=== PATIENT | female | born 1955 | race Caucasian/White ===

== ENCOUNTER 2020-07-18 13:30 | Outpatient (REF) | payer MEDICARE, SELFPAY | END 2020-07-18 13:31 | disposition home or self-care (01) | LOC: HO.LAB 13:30 | PROVIDERS: PCP Internal Medicine; Visit Provider Internal Medicine | DX: Z20.822 Contact with and (suspected) exposure to COVID-19 (principal) | CPT/HCPCS: 36415; C9803; U0003 ==

== ENCOUNTER 2020-07-30 15:29 | Outpatient (REF) | payer MEDICARE, SELFPAY | END 2020-07-30 15:30 | disposition home or self-care (01) | LOC: HO.LAB 15:29 | PROVIDERS: Visit Provider Internal Medicine | DX: Z20.822 Contact with and (suspected) exposure to COVID-19 (principal) | CPT/HCPCS: 36415; C9803; U0003; U0005 ==

== ENCOUNTER 2020-08-18 13:39 | Outpatient (REF) | payer MEDICARE, SELFPAY | END 2020-08-18 13:40 | disposition home or self-care (01) | LOC: HO.LAB 13:39 | PROVIDERS: Visit Provider Internal Medicine | DX: Z20.822 Contact with and (suspected) exposure to COVID-19 (principal) | CPT/HCPCS: 36415; C9803; U0003; U0005 ==

== ENCOUNTER 2020-10-06 13:11 | Outpatient (REF) | payer MEDICARE, SELFPAY | END 2020-10-06 13:12 | disposition home or self-care (01) | LOC: HO.LAB 13:11 | PROVIDERS: Visit Provider Internal Medicine | DX: Z20.822 Contact with and (suspected) exposure to COVID-19 (principal) | CPT/HCPCS: C9803; U0003; U0005 ==

== ENCOUNTER 2020-10-20 15:49 | Outpatient (REF) | payer MEDICARE, SELFPAY | END 2020-10-20 15:50 | disposition home or self-care (01) | LOC: HO.LAB 15:49 | PROVIDERS: Visit Provider Internal Medicine | DX: Z20.822 Contact with and (suspected) exposure to COVID-19 (principal) | CPT/HCPCS: C9803; U0003; U0005 ==

== ENCOUNTER 2020-12-23 21:42 | Emergency (ER) | payer MEDICARE, SELFPAY ==
[2020-12-23 21:45] VITALS: BP 179/100; PULSE 72; RESP 18; TEMP 36.9; O2SAT 98; BMI 37.3
[2020-12-23 22:00] VITALS: BP 156/77; PULSE 72; RESP 16; TEMP 36.7; O2SAT 99
--- NOTE | 2020-12-23 22:42 | ECG_ITS ---
Test Reason : HBP Blood Pressure : / mmHG Vent. Rate : 070 BPM Atrial Rate : 070 BPM P-R Int : 168 ms QRS Dur : 078 ms QT Int : 374 ms P-R-T Axes : 021 030 072 degrees QTc Int : 403 ms Normal sinus rhythm Nonspecific T wave abnormality Abnormal ECG When compared with ECG of 05-DEC-2014 15:25, Nonspecific T wave abnormality now evident in Inferior leads Nonspecific T wave abnormality, worse in Lateral leads Referred By: Mai Ford Electronically Signed By:MARIA L ROUSSEAU
--- NOTE | 2020-12-23 22:43 | ED.GENADULT ---
HPI - General Adult General Chief complaint: Recheck/Abnormal Lab/Rx Stated complaint: high bp Time Seen by Provider: 12/23/20 22:32 Source: patient Mode of arrival: ambulatory Limitations: no limitations History of Present Illness HPI narrative: patient comes emergency room complaining of high blood pressure. Patient states that in the last couple of days, she has been having episodes of headache, blurry vision, and chest pressure. At this time, patient states she does not have any symptoms. Last time patient had symptoms was 19:00 today. patient takes verapamil 120 mg at night Related Data Previous Rx's Medication Instructions Recorded verapamil 40 mg PO DAILY #20 tab 12/24/20 Allergies Allergy/AdvReac Type Severity Reaction Status Date / Time codeine Allergy Itching Verified 12/23/20 21:45 Review of Systems Review of Systems: Constitutional : No Weight loss, No Fever, No Chills, No Night Sweats, No Fatigue, No Malaise ENT/Mouth : No Hearing loss, No Ear Pain, No Nasal Congestion, No Sinus Pain, No Hoarseness, No sore throat, No Rhinorrhea, No Swallowing Difficulty Eyes: No Eye Pain, No Swelling, No Redness, No Foreign Body, No Discharge, blurry vision with high blood pressure Cardiovascular : chest pressure now resolved, No SOB, No Dyspnea on Exertion, No Orthopnea, No Edema, No Palpitations Respiratory : No Cough, No Sputum, No Wheezing, No Smoke Exposure, No Dyspnea Gastrointestinal : No Nausea, No Vomiting, No Diarrhea, No Constipation, No abdominal Pain, No Hematochezia, No Melena Genitourinary : no irregular bleeding, No Dysuria, No Urinary Frequency, No Hematuria, No Urinary Incontinence, No Urgency, No Flank Pain, No Urinary Flow Changes, No Hesitancy Musculoskeletal : No joint pain, No Myalgias, No Joint Swelling Skin : No Skin Lesions, No rash Neuro : No Weakness, No Numbness, No Paresthesias, No Loss of Consciousness, No Dizziness, headache which resolved Psych : No Anxiety/Panic, No Depression, No SI/HI/AH/VH, No Social Issues, Heme/Lymph: No Bruising, No Bleeding,No Lymphadenopathy Endocrine : No Polyuria, No Polydipsia, No Temperature Intolerance PMFSH Past Medical History Medical History Anxiety Depression Diabetes HTN (hypertension) Migraines Social History Social History Advance Directives: No Physical Exam Vital Signs: Vital Signs: Last Vital Signs Temp 98.1 F 12/23/20 22:00 Pulse 76 12/24/20 00:21 Resp 16 12/24/20 00:21 BP 125/71 12/24/20 00:21 Pulse Ox 98 12/24/20 00:21 Body Mass Index 37.3 Appearance: Alert. Oriented X3. No acute distress. Eyes: Pupils equal, round and reactive to light. ENT: Pharynx normal. Neck: Normal inspection. Neck supple. No lymph nodes noted. No crepitus CVS: Normal heart rate and rhythm. Pulses normal. Normal S1 and S2 Respiratory: No respiratory distress. Breath sounds normal. No Wheezing. No rales Abdomen: Soft and nontender. No rigidity. No distention. Skin: Skin warm and dry. Normal skin color. Normal skin turgor. Extremities: No lower extremity edema. No lower extremity edema. No Lacerations. No Rash Neuro: Oriented X 3. No motor deficit. No sensory deficit. Moving all extermities. No slurred speech. Course Course Course Narrative: at this time, patient's blood pressure is 156/77, patient is asymptomatic. Patient did have chest pressure earlier today, we will go ahead and obtain labs and EKG. patient's troponin negative, patient remains asymptomatic. I discussed with the patient to continue taking 120 mg of verapamil as prescribed by her PCP, but in addition, we will add 40 mg of verapamil in the morning, as this medication can be taken b.i.d. or t.i.d. patient agrees with plan Medical Decision Making Lab Data Result diagrams: 12/23/20 23:18 12/23/20 23:18 Labs: Lab Results 12/23/20 12/23/20 12/23/20 Range/Units 23:18 23:18 23:18 WBC 7.6 (4.8-10.8) X10*3/uL RBC 3.98 L (4.20-5.50) X10*6/uL Hgb 12.9 (12.0-16.0) g/dl Hct 39.1 (37-47) % MCV 98.2 H (80-98) fL MCH 32.4 (27.0-33.0) pg MCHC 33.0 (31.0-35.0) g/dl RDW 13.1 (11.0-16.0) % Plt Count 260 (160-400) X10*3/uL MPV 10.6 (9.4-12.3) fL Immature Gran % (Auto) 0.3 (0.0-0.4) % Neut % (Auto) 54.1 (45-73) % Lymph % (Auto) 33.7 (20-40) % [place] % (Auto) 9.9 (2-11) % Eos % (Auto) 1.3 (0-4) % Baso % (Auto) 0.7 (0-2) % Lymph # (Auto) 2.6 (1.2-4.9) X10*3/uL [place] # (Auto) 0.8 (0.1-1.2) X10*3/uL Eos # (Auto) 0.1 (0.0-0.4) X10*3/uL Baso # (Auto) 0.1 (0.0-0.2) X10*3/uL Abs Immat Gran (auto) 0.02 (0.00-0.03) X10*3/uL Absolute Neuts (auto) 4.1 (2.0-8.3) X10*3/uL Absolute Nucleated RBC 0.000 (0.0-0.012) X10*3/uL Nucleated RBC % (auto) 0.0 (0.0-0.2) /100WBC Sodium 142 (135-145) mmol/L Potassium 4.5 (3.3-5.1) mmol/L Chloride 107 (96-108) mmol/L Carbon Dioxide 26 (22-29) mmol/L Anion Gap 14 (12-20) BUN 12 (9-16) mg/dL Creatinine 0.70 (0.5-1.4) mg/dL Estim Creat Clear Calc 83.6 Estimated GFR > 60 Random Glucose 100 (60-115) mg/dL Calcium 9.7 (8.4-10.2) mg/dL Troponin I High Sens < 3.5 (<3.5-17.0) ng/L B-Natriuretic Peptide 16 (<100) pg/mL Urine Color Urine Appearance Urine pH (5.0-8.0) Ur Specific [place] (1.005-1.025) Urine Protein (NEG-TRACE) MG/DL Urine Glucose (UA) (NEG) MG/DL Urine Ketones (NEG) MG/DL Urine Blood (NEG) Urine Nitrite (NEG) Ur Leukocyte Esterase (NEG) 12/23/20 Range/Units 23:20 WBC (4.8-10.8) X10*3/uL RBC (4.20-5.50) X10*6/uL Hgb (12.0-16.0) g/dl Hct (37-47) % MCV (80-98) fL MCH (27.0-33.0) pg MCHC (31.0-35.0) g/dl RDW (11.0-16.0) % Plt Count (160-400) X10*3/uL MPV (9.4-12.3) fL Immature Gran % (Auto) (0.0-0.4) % Neut % (Auto) (45-73) % Lymph % (Auto) (20-40) % [place] % (Auto) (2-11) % Eos % (Auto) (0-4) % Baso % (Auto) (0-2) % Lymph # (Auto) (1.2-4.9) X10*3/uL [place] # (Auto) (0.1-1.2) X10*3/uL Eos # (Auto) (0.0-0.4) X10*3/uL Baso # (Auto) (0.0-0.2) X10*3/uL Abs Immat Gran (auto) (0.00-0.03) X10*3/uL Absolute Neuts (auto) (2.0-8.3) X10*3/uL Absolute Nucleated RBC (0.0-0.012) X10*3/uL Nucleated RBC % (auto) (0.0-0.2) /100WBC Sodium (135-145) mmol/L Potassium (3.3-5.1) mmol/L Chloride (96-108) mmol/L Carbon Dioxide (22-29) mmol/L Anion Gap (12-20) BUN (9-16) mg/dL Creatinine (0.5-1.4) mg/dL Estim Creat Clear Calc Estimated GFR Random Glucose (60-115) mg/dL Calcium (8.4-10.2) mg/dL Troponin I High Sens (<3.5-17.0) ng/L B-Natriuretic Peptide (<100) pg/mL Urine Color COLORLESS Urine Appearance CLEAR Urine pH 6.0 (5.0-8.0) Ur Specific [place] <= 1.005 (1.005-1.025) Urine Protein NEG (NEG-TRACE) MG/DL Urine Glucose (UA) NEG (NEG) MG/DL Urine Ketones NEG (NEG) MG/DL Urine Blood NEG (NEG) Urine Nitrite NEG (NEG) Ur Leukocyte Esterase NEG (NEG) ECG Data Attestation: I personally reviewed and interpreted this ECG as follows: ( sinus rhythm, heart rate 70, no ST segment depression or elevation, no T-wave inversion, QTC 403) Discharge Plan Discharge Clinical Impression: Hypertension Qualifiers: Hypertension type: unspecified Qualified Code(s): I10 - Essential (primary) hypertension Patient Disposition: Home, Self-Care Instructions: Hypertension (ED) Additional Instructions: Please follow-up with your primary care physician tomorrow. If you have any worsening or new symptoms, please return to the emergency room or call 911 Prescriptions: New verapamil 40 mg tablet 40 mg PO DAILY Qty: 20 RF: 0
[2020-12-23 23:25] LABS: MANUAL DIFF FLAG NO
[2020-12-23 23:27] LABS: Basophils Absolute Auto 0.1 X10*3/uL (0.0-0.2); Basophils Percent Auto 0.7 % (0-2); Eosinophils Absolute Auto 0.1 X10*3/uL (0.0-0.4); Eosinophils Percent Auto 1.3 % (0-4); Hematocrit 39.1 % (37-47); Hemoglobin 12.9 g/dl (12.0-16.0); Imm Gran Abs Auto 0.02 X10*3/uL (0.00-0.03); Imm Gran Pct Auto 0.3 % (0.0-0.4); Lymphocytes Absolute Auto 2.6 X10*3/uL (1.2-4.9); Lymphocytes Percent Auto 33.7 % (20-40); Mean Corpuscular Hemoglobin 32.4 pg (27.0-33.0); Mean Corpuscular Volume 98.2 fL (80-98); Mean Platelet Volume 10.6 fL (9.4-12.3); Monocytes Absolute Auto 0.8 X10*3/uL (0.1-1.2); Monocytes Percent Auto 9.9 % (2-11); Neutrophils Absolute Auto 4.1 X10*3/uL (2.0-8.3); Neutrophils Percent Auto 54.1 % (45-73); Platelet Count 260 X10*3/uL (160-400); Red Blood Count 3.98 X10*6/uL (4.20-5.50); Red Cell Distribution Width 13.1 % (11.0-16.0); White Blood Count 7.6 X10*3/uL (4.8-10.8)
[2020-12-23 23:28] LABS: Glucose Urine UA NEG (NEG); Leukocyte Esterase Urine NEG (NEG); Nitrite Urine NEG (NEG); Specific Gravity - Urine <= 1.005 (1.005-1.025); Urine Blood NEG (NEG); Urine Ketones NEG (NEG); Urine Protein NEG (NEG-TRACE)
[2020-12-23 23:29] LABS: Appearance Urine CLEAR; Color Urine COLORLESS; UACC Culture Trigger NO
[2020-12-23 23:47] LABS: Anion Gap 14 (12-20); Blood Urea Nitrogen 12 mg/dL (9-16); Calcium 9.7 mg/dL (8.4-10.2); Carbon Dioxide 26 mmol/L (22-29); Chloride 107 mmol/L (96-108); Creatinine Clr Calc Pharmacy 83.6; Estimated Glomerular Filt Rate > 60; Glucose Random 100 mg/dL (60-115); Potassium 4.5 mmol/L (3.3-5.1); Sodium 142 mmol/L (135-145)
[2020-12-23 23:55] LABS: B Type Natriuretic Peptide 16 pg/mL (<100); Troponin-I High Sensitivity < 3.5 ng/L (<3.5-17.0)
[2020-12-24 00:21] VITALS: BP 125/71; PULSE 76; RESP 16; O2SAT 98
== END 2020-12-24 00:49 | disposition home or self-care (01) ==
PROVIDERS: Emergency Provider Emergency Medicine; PCP Internal Medicine
DX: I10 Essential (primary) hypertension (principal); R07.89 Other chest pain; Z79.899 Other long term (current) drug therapy
CPT/HCPCS: 36415; 80048; 81003; 83880; 84484; 85025; 93005; 99283; 99284

== ENCOUNTER 2021-01-05 14:46 | Emergency (ER) | payer MEDICARE, SELFPAY ==
--- NOTE | ~2021-01-05 | XR_ITS ---
EXAMINATION: XR CHEST CLINICAL INFORMATION: Pain COMPARISON: Previous chest x-ray most recent January 2008 TECHNIQUE: Frontal view of the chest was obtained. FINDINGS: The cardiac and mediastinal contours are normal. The lungs are clear. There is no pleural effusion or pneumothorax. There are degenerative changes of the spine. XR/XR chest 1V IMPRESSION: No evidence for acute disease in the chest.
[2021-01-05 15:01] VITALS: BP 157/90; PULSE 72; RESP 18; TEMP 37.1; O2SAT 98; BMI 37.3
--- NOTE | 2021-01-05 15:07 | ECG_ITS ---
Test Reason : HIGH BLOOD PRESSURE Blood Pressure : / mmHG Vent. Rate : 064 BPM Atrial Rate : 064 BPM P-R Int : 192 ms QRS Dur : 080 ms QT Int : 428 ms P-R-T Axes : -13 018 065 degrees QTc Int : 441 ms Normal sinus rhythm Nonspecific T wave abnormality Abnormal ECG When compared with ECG of 24-DEC-2020 00:33, No significant change was found Referred By: Generic ED Physician Electronically Signed By:EBONY WEST MD
[2021-01-05 16:00] VITALS: BP 153/87; PULSE 69; RESP 15; TEMP 37; O2SAT 99
--- NOTE | 2021-01-05 16:12 | ED_ITS ---
HPI - Weakness General Chief complaint: Recheck/Abnormal Lab/Rx Stated complaint: HIGH BP Time Seen by Provider: 01/05/21 15:54 Source: patient, family and old records reviewed Mode of arrival: ambulatory Limitations: no limitations History of Present Illness HPI Narrative: 65 yo female recent increase in verapamil for uncontrolled HTN at this time she is on 40mg verapamil in the AM and 120mg at night - she feels so much more fatigued and weak since being on the verapamil and also notes that her BP fluctuates to 170s at times MD Complaint: generalized weakness Onset (ago): week(s) (since beginning of December ) Duration: constant Location: generalized Migration: none Severity: moderate Quality: aching Relieving factors: none Exacerbating factors: medication Context: new medication Associated symptoms: chest pain, loss of appetite and myalgias Related Data Previous Rx's Medication Instructions Recorded verapamil 40 mg PO DAILY #20 tab 12/24/20 lisinopril 10 mg PO DAILY #30 tab 01/05/21 Allergies Allergy/AdvReac Type Severity Reaction Status Date / Time codeine Allergy Itching Verified 12/23/20 21:45 Review of Systems Review of Systems: Constitutional : No Weight loss, No Fever, No Chills, pos Fatigue, pos Malaise ENT/Mouth : No sore throat, No Rhinorrhea Eyes: No Eye Pain, No Swelling, No Redness Cardiovascular : pos Chest Pain, No SOB, No Dyspnea on Exertion, No Orthopnea, No Edema, No Palpitations Respiratory : No Cough, No Sputum, No Wheezing Gastrointestinal : No Nausea, No Vomiting, No Diarrhea, No Constipation, No abdominal Pain, No Hematochezia, No Melena Genitourinary : No Dysuria, No Urinary Frequency, No Hematuria, Musculoskeletal : No joint pain, No Myalgias, No Joint Swelling Skin : No Skin Lesions, No rash Neuro : pos Weakness, No Numbness, No Dizziness, No Headache Psych : No Anxiety/Panic, No Depression Heme/Lymph: No Bruising, No Bleeding,No Lymphadenopathy Endocrine : No Polyuria, No Polydipsia All other systems reviewed and are negative [facility] Past Medical History Attestation statement: The following information was validated with the patient. Medical History Anxiety Depression Diabetes HTN (hypertension) Migraines Social History Social History Alcohol intake: never Patient Tobacco Use Status: Never used Tobacco Use of substances other than those prescribed or required for medical reasons: No Advance Directives: No Advance Directives Information Provided: Yes Physical Exam Vital Signs: Vital Signs: Last Vital Signs Temp 98.6 F 01/05/21 16:00 Pulse 69 01/05/21 16:00 Resp 15 01/05/21 16:00 BP 153/87 H 01/05/21 16:00 Pulse Ox 99 01/05/21 16:00 Body Mass Index 37.3 Appearance: Alert. Oriented X3. No acute distress. Eyes: Pupils equal, round and reactive to light. ENT: Pharynx normal. Neck: Normal inspection. Neck supple. CVS: Normal heart rate and rhythm. Pulses normal. Respiratory: No respiratory distress. Breath sounds normal. Abdomen: Soft and non-tender. Skin: Skin warm and dry. Normal skin color. Normal skin turgor. Extremities: No lower extremity edema. No calf ttp Neuro: Oriented X 3. No motor deficit. No sensory deficit. Course Course Course Narrative: stable workup will take the pateint off of the 40mg in the AM, start lisinopril 5 mg daily for 2 days then increase to 10mg daily if her BP still remain up MDM - Weakness MDM Narrative Medical decision making narrative: 65 yo female with hx of DM, HTN on verapamil for many years - comes in with c/o fluctuating BPs, feels much worse and weak after having her verapamil increased 2 weeks ago - she can't get out of bed, she feels general malaise at this time will obtain labs, EKG, troponin given her reports of CP that are vague and seem atypical for ACS, will stop the verapamil 40mg given her symptoms and start her on lisinopril as patient is DM will start at 10mg daily and refer to PCP if labs wnl, has not been on ROSA-i in the past and does not take more than one BP medication Lab Data Result diagrams: 01/05/21 16:10 01/05/21 16:10 Labs: Lab Results 01/05/21 01/05/21 01/05/21 Range/Units 16:10 16:10 16:10 WBC 7.9 (4.8-10.8) X10*3/uL RBC 4.16 L (4.20-5.50) X10*6/uL Hgb 13.3 (12.0-16.0) g/dl Hct 40.5 (37-47) % MCV 97.4 (80-98) fL MCH 32.0 (27.0-33.0) pg MCHC 32.8 (31.0-35.0) g/dl RDW 12.9 (11.0-16.0) % Plt Count 262 (160-400) X10*3/uL MPV 10.7 (9.4-12.3) fL Immature Gran % (Auto) 0.4 (0.0-0.4) % Neut % (Auto) 62.7 (45-73) % Lymph % (Auto) 29.0 (20-40) % [place] % (Auto) 6.5 (2-11) % Eos % (Auto) 1.0 (0-4) % Baso % (Auto) 0.4 (0-2) % Lymph # (Auto) 2.3 (1.2-4.9) X10*3/uL [place] # (Auto) 0.5 (0.1-1.2) X10*3/uL Eos # (Auto) 0.1 (0.0-0.4) X10*3/uL Baso # (Auto) 0.0 (0.0-0.2) X10*3/uL Abs Immat Gran (auto) 0.03 (0.00-0.03) X10*3/uL Absolute Neuts (auto) 5.0 (2.0-8.3) X10*3/uL Absolute Nucleated RBC 0.000 (0.0-0.012) X10*3/uL Nucleated RBC % (auto) 0.0 (0.0-0.2) /100WBC Sodium 140 (135-145) mmol/L Potassium 4.1 (3.3-5.1) mmol/L Chloride 107 (96-108) mmol/L Carbon Dioxide 25 (22-29) mmol/L Anion Gap 12 (12-20) BUN 15 (9-16) mg/dL Creatinine 0.78 (0.5-1.4) mg/dL Estim Creat Clear Calc 75.1 Estimated GFR > 60 Random Glucose 113 (60-115) mg/dL Calcium 9.2 (8.4-10.2) mg/dL Magnesium 2.0 (1.6-2.6) mg/dL Total Bilirubin 0.2 (0.0-1.0) mg/dL Direct Bilirubin < 0.2 (0.0-0.5) mg/dL AST 25 (5-31) U/L ALT 40 H (0-31) U/L Alkaline Phosphatase 62 (39-117) U/L Total Creatine Kinase (26-140) U/L Troponin I High Sens < 3.5 (<3.5-17.0) ng/L Total Protein 6.6 (6.5-8.0) g/dL Albumin 4.0 (3.5-5.0) g/dL Lipase 26 (8-78) U/L 01/05/21 Range/Units 16:10 WBC (4.8-10.8) X10*3/uL RBC (4.20-5.50) X10*6/uL Hgb (12.0-16.0) g/dl Hct (37-47) % MCV (80-98) fL MCH (27.0-33.0) pg MCHC (31.0-35.0) g/dl RDW (11.0-16.0) % Plt Count (160-400) X10*3/uL MPV (9.4-12.3) fL Immature Gran % (Auto) (0.0-0.4) % Neut % (Auto) (45-73) % Lymph % (Auto) (20-40) % [place] % (Auto) (2-11) % Eos % (Auto) (0-4) % Baso % (Auto) (0-2) % Lymph # (Auto) (1.2-4.9) X10*3/uL [place] # (Auto) (0.1-1.2) X10*3/uL Eos # (Auto) (0.0-0.4) X10*3/uL Baso # (Auto) (0.0-0.2) X10*3/uL Abs Immat Gran (auto) (0.00-0.03) X10*3/uL Absolute Neuts (auto) (2.0-8.3) X10*3/uL Absolute Nucleated RBC (0.0-0.012) X10*3/uL Nucleated RBC % (auto) (0.0-0.2) /100WBC Sodium (135-145) mmol/L Potassium (3.3-5.1) mmol/L Chloride (96-108) mmol/L Carbon Dioxide (22-29) mmol/L Anion Gap (12-20) BUN (9-16) mg/dL Creatinine (0.5-1.4) mg/dL Estim Creat Clear Calc Estimated GFR Random Glucose (60-115) mg/dL Calcium (8.4-10.2) mg/dL Magnesium (1.6-2.6) mg/dL Total Bilirubin (0.0-1.0) mg/dL Direct Bilirubin (0.0-0.5) mg/dL AST (5-31) U/L ALT (0-31) U/L Alkaline Phosphatase (39-117) U/L Total Creatine Kinase 80 (26-140) U/L Troponin I High Sens (<3.5-17.0) ng/L Total Protein (6.5-8.0) g/dL Albumin (3.5-5.0) g/dL Lipase (8-78) U/L ECG Data Attestation: I personally reviewed and interpreted this ECG as follows: ECG interpretation date: 01/05/21 ECG interpretation time: 16:13 Interpretation: Rate: 64 Rhythm: NSR [place]: normal Normal P waves. Normal WILLY. Normal QRS complex. ST T wave : normal no ALMA qTC: normal prior studies: no acute ischemia The study has been interpreted contemporaneously by me. . Discharge Plan Discharge Clinical Impression: Weakness HTN (hypertension) Qualifiers: Hypertension type: unspecified Qualified Code(s): I10 - Essential (primary) hypertension Patient Disposition: Home, Self-Care Instructions: Chronic Hypertension (ED) Additional Instructions: return to ED for any worsening symptoms or concerns STOP VERAPAMIL IN THE AM NO MORE 40MG IN THE MORNING START 5MG DAILY IN THE AM X 2 DAYS IF BLOOD PRESSURE REMAINS HIGH INCREASE TO 10MG DAILY Prescriptions: New lisinopril 10 mg tablet 10 mg PO DAILY Qty: 30 RF: 0 No Action verapamil 40 mg tablet 40 mg PO DAILY Qty: 20 RF: 0 Referrals: Hubert Alfredo MD [Primary Care Provider] - 1 week
[2021-01-05 16:13] LABS: MANUAL DIFF FLAG NO
[2021-01-05 16:16] LABS: Basophils Percent Auto 0.4 % (0-2); Eosinophils Absolute Auto 0.1 X10*3/uL (0.0-0.4); Hematocrit 40.5 % (37-47); Hemoglobin 13.3 g/dl (12.0-16.0); Imm Gran Abs Auto 0.03 X10*3/uL (0.00-0.03); Imm Gran Pct Auto 0.4 % (0.0-0.4); Lymphocytes Absolute Auto 2.3 X10*3/uL (1.2-4.9); Mean Corpuscular HGB Conc 32.8 g/dl (31.0-35.0); Mean Corpuscular Volume 97.4 fL (80-98); Mean Platelet Volume 10.7 fL (9.4-12.3); Monocytes Absolute Auto 0.5 X10*3/uL (0.1-1.2); Monocytes Percent Auto 6.5 % (2-11); Neutrophils Percent Auto 62.7 % (45-73); Platelet Count 262 X10*3/uL (160-400); Red Blood Count 4.16 X10*6/uL (4.20-5.50); Red Cell Distribution Width 12.9 % (11.0-16.0); White Blood Count 7.9 X10*3/uL (4.8-10.8)
[2021-01-05 16:39] LABS: Alanine Aminotransferase 40 U/L (0-31); Alkaline Phosphatase 62 U/L (39-117); Anion Gap 12 (12-20); Aspartate Amino Transferase 25 U/L (5-31); Bilirubin Direct < 0.2 mg/dL (0.0-0.5); Bilirubin Total 0.2 mg/dL (0.0-1.0); Blood Urea Nitrogen 15 mg/dL (9-16); Calcium 9.2 mg/dL (8.4-10.2); Carbon Dioxide 25 mmol/L (22-29); Chloride 107 mmol/L (96-108); Creatinine Clr Calc Pharmacy 75.1; Estimated Glomerular Filt Rate > 60; Glucose Random 113 mg/dL (60-115); Lipase 26 U/L (8-78); Potassium 4.1 mmol/L (3.3-5.1); Sodium 140 mmol/L (135-145); Total Protein 6.6 g/dL (6.5-8.0)
[2021-01-05 16:43] LABS: Troponin-I High Sensitivity < 3.5 ng/L (<3.5-17.0)
[2021-01-05 17:32] VITALS: BP 135/71; PULSE 73
== END 2021-01-05 17:23 | disposition home or self-care (01) ==
PROVIDERS: Emergency Provider Emergency Medicine; PCP Internal Medicine
DX: I10 Essential (primary) hypertension (principal); R53.1 Weakness; Z79.899 Other long term (current) drug therapy
CPT/HCPCS: 36415; 71045; 80048; 80076; 82550; 83690; 83735; 84484; 85025; 93005; 99284

== ENCOUNTER 2021-03-16 06:19 | Emergency (ER) | payer MEDICARE, SELFPAY ==
--- NOTE | ~2021-03-16 | CT_ITS ---
EXAMINATION: CT ABDOMEN AND PELVIS WITHOUT CONTRAST CLINICAL INFORMATION: Left-sided flank pain. COMPARISON: None TECHNIQUE: Multidetector volumetric imaging was performed from the superior aspect of the liver through the pubic symphysis. Sagittal and coronal reformatted images were obtained on the technologist's workstation. This CT examination was performed using dose optimization techniques as appropriate, variously including the following: *Automated exposure control *Adjustment of mA and/or kV according to patient size (this includes techniques or standardized protocols for targeted exams where dose is matched to indication/reason for exam; i.e. extremities or head) *Use of iterative reconstruction technique DLP: 798 mGy-cm FINDINGS: LUNG BASES: There is a small hiatal hernia. The lung bases are clear. LIVER, GALLBLADDER, AND BILIARY TREE: The liver is normal in size, shape, and attenuation. No focal hepatic lesion or biliary ductal dilatation is present. The gallbladder has been surgically removed. PANCREAS: Unremarkable. SPLEEN: Unremarkable. ADRENAL GLANDS: Unremarkable. KIDNEYS AND URETERS: The kidneys are normal in size, shape, and attenuation. No hydronephrosis, hydroureter, or calculi seen. No perinephric stranding. BLADDER: Unremarkable. GASTROINTESTINAL TRACT: There is diffuse colonic diverticulosis most prominent descending and the sigmoid: Without mural thickening or pericolic fat stranding. There is scattered stool seen throughout the colon without distention. The small bowel loops are normal caliber. Appendix is normal caliber with. No free air or free fluid seen. ABDOMINAL WALL: A small the colon hernia containing fat is noted. Also visualized is a supraumbilical) midline abdominal hernia containing fat with a 1.2 cm wide neck. LYMPH NODES: Normal. VASCULAR: Unremarkable. PELVIC VISCERA: There is no free air or free fluid. No abnormal pelvic or inguinal lymph nodes seen. OSSEOUS STRUCTURES: There are degenerative disc changes L2-L3, L3-L4 and L4-L5 disc levels. No lytic process. 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 Mild facet joint arthropathy seen at the L5-S1 and right L4-L5 disc level. CT/CT abdomen pelvis wo con IMPRESSION: No acute intra-abdominal process seen. There is colonic diverticulosis without diverticulitis. Small lumbar canal hernia containing fat. Small supraumbilical) midline abdominal wall hernia containing fat
--- NOTE | ~2021-03-16 | XR_ITS ---
EXAMINATION: XR CHEST CLINICAL INFORMATION: Cough. COMPARISON: Chest 01/05/2021. TECHNIQUE: Frontal view of the chest was obtained. FINDINGS: No significant abnormality is noted involving the heart, lungs, mediastinum, bony thorax or soft tissues. XR/XR chest 1V IMPRESSION: Unremarkable chest examination.
[2021-03-16 06:36] VITALS: BP 115/71; RESP 20; TEMP 37.1; O2SAT 98; BMI 37.1
--- NOTE | 2021-03-16 07:24 | ED.ASTHMA ---
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 Mode of arrival: ambulatory Limitations: no limitations History of Present Illness MD complaint: asthma attack and wheezing Onset (ago): day(s) (3) Severity: moderate and similar to prior Context: none known Associated symptoms: dry cough Asthma History: childhood onset Treatments Prior to Arrival: inhaled bronchodilator Related Data Previous Rx's Medication Instructions Recorded verapamil 40 mg tablet 40 mg PO DAILY #20 tab 12/24/20 lisinopril 10 mg tablet 10 mg PO DAILY #30 tab 01/05/21 hydrocodone-homatropine 5 mg-1.5 5 ml PO Q6H PRN #60 ml 03/16/21 mg/5 mL (5 mL) oral syrup Allergies Allergy/AdvReac Type Severity Reaction Status Date / Time codeine Allergy Itching Verified 12/23/20 21:45 Review of Systems Review of Systems: Constitutional : No Fever, No Chills ENT/Mouth : No Hoarseness, No sore throat, No Rhinorrhea Eyes: No Redness, No Discharge, No Vision Changes Cardiovascular : No Chest Pain, positive SOB, positive Dyspnea on Exertion, No Edema Respiratory : positive Cough, No Sputum, positive Wheezing, Gastrointestinal : No Nausea, No Vomiting, No Diarrhea, No abdominal Pain, pos L flank pain Genitourinary : No Dysuria, No Hematuria Musculoskeletal : No joint pain, No Myalgias Skin : No rash Neuro : No Weakness, No Numbness, No Headache Psych : No anxiety, depression Heme/Lymph: No Bruising, No Bleeding Endocrine : No Polyuria, No Polydipsia All other systems reviewed and are negative [facility] Past Medical History Attestation statement: The following information was validated with the patient. Medical History Anxiety Depression Diabetes HTN (hypertension) Migraines Surgical History H/O bariatric surgery Hx of cholecystectomy Social History Social History Alcohol intake: never Patient Tobacco Use Status: Never used Tobacco Advance Directives: No Physical Exam Vital Signs: Vital Signs: Last Vital Signs Temp 98.7 F 03/16/21 06:36 Pulse 60 03/16/21 07:31 Resp 20 03/16/21 06:36 BP 115/71 03/16/21 06:36 Pulse Ox 98 03/16/21 06:36 Body Mass Index 37.1 Appearance: Alert. Oriented X3. No acute distress. Eyes: Pupils equal, round and reactive to light. ENT: Pharynx normal. Neck: Normal inspection. Neck supple. CVS: Normal heart rate and rhythm. Pulses normal. Chest: left lower rib ttp Respiratory: No respiratory distress. Breath sounds mild diffuse end exp wheezes Abdomen: Soft and nontender. incisions are c/d/i Skin: Skin warm and dry. Normal skin color. Normal skin turgor. Extremities: No lower extremity edema. No calf ttp Neuro: Oriented X 3. No motor deficit. No sensory deficit. Course Course Course Narrative: negative workup, CT scan and CXR normal - labs stable UA negative oral dexamethasone ordered MDM - Asthma MDM Narrative Medical decision making narrative: 65 yo female experiencing asthma for 3 days comes in with wheezing and L rib pain post coughing, she has no fevers, no associated GI/ symptoms - will give neb, ant tussive and obtain basic labs, UA, CT scan though I think her pain is related to coughing, no chest pain doubt PE/ACS Lab Data Result diagrams: 03/16/21 07:36 03/16/21 07:36 Labs: Lab Results 03/16/21 03/16/21 03/16/21 Range/Units 07:36 07:36 07:36 WBC 5.9 (4.8-10.8) X10*3/uL RBC 3.91 L (4.20-5.50) X10*6/uL Hgb 12.5 (12.0-16.0) g/dl Hct 38.6 (37-47) % MCV 98.7 H (80-98) fL MCH 32.0 (27.0-33.0) pg MCHC 32.4 (31.0-35.0) g/dl RDW 14.0 (11.0-16.0) % Plt Count 294 (160-400) X10*3/uL MPV 10.4 (9.4-12.3) fL Immature Gran % (Auto) 0.2 (0.0-0.4) % Neut % (Auto) 44.3 L (45-73) % Lymph % (Auto) 43.7 H (20-40) % [place] % (Auto) 8.8 (2-11) % Eos % (Auto) 2.2 (0-4) % Baso % (Auto) 0.8 (0-2) % Lymph # (Auto) 2.6 (1.2-4.9) X10*3/uL [place] # (Auto) 0.5 (0.1-1.2) X10*3/uL Eos # (Auto) 0.1 (0.0-0.4) X10*3/uL Baso # (Auto) 0.1 (0.0-0.2) X10*3/uL Abs Immat Gran (auto) 0.01 (0.00-0.03) X10*3/uL Absolute Neuts (auto) 2.6 (2.0-8.3) X10*3/uL Absolute Nucleated RBC 0.000 (0.0-0.012) X10*3/uL Nucleated RBC % (auto) 0.0 (0.0-0.2) /100WBC Sodium 140 (135-145) mmol/L Potassium 4.6 (3.3-5.1) mmol/L Chloride 107 (96-108) mmol/L Carbon Dioxide 24 (22-29) mmol/L Anion Gap 14 (12-20) BUN 8 L (9-16) mg/dL Creatinine 0.66 (0.5-1.4) mg/dL Estim Creat Clear Calc 88.5 Estimated GFR > 60 Random Glucose 98 (60-115) mg/dL Calcium 9.3 (8.4-10.2) mg/dL Magnesium 2.2 (1.6-2.6) mg/dL Total Bilirubin 0.4 (0.0-1.0) mg/dL Direct Bilirubin < 0.2 (0.0-0.5) mg/dL AST 36 H D (5-31) U/L ALT 55 H (0-31) U/L Alkaline Phosphatase 55 (39-117) U/L Total Protein 6.4 L (6.5-8.0) g/dL Albumin 3.9 (3.5-5.0) g/dL Lipase 34 (8-78) U/L Urine Color Urine Appearance Urine pH (5.0-8.0) Ur Specific [place] (1.005-1.025) Urine Protein (NEG-TRACE) MG/DL Urine Glucose (UA) (NEG) MG/DL Urine Ketones (NEG) MG/DL Urine Blood (NEG) Urine Nitrite (NEG) Ur Leukocyte Esterase (NEG) COVID-19 (DAMARIS) Negative (Negative) COVID-19 Clin Com See Note 03/16/21 Range/Units 09:51 WBC (4.8-10.8) X10*3/uL RBC (4.20-5.50) X10*6/uL Hgb (12.0-16.0) g/dl Hct (37-47) % MCV (80-98) fL MCH (27.0-33.0) pg MCHC (31.0-35.0) g/dl RDW (11.0-16.0) % Plt Count (160-400) X10*3/uL MPV (9.4-12.3) fL Immature Gran % (Auto) (0.0-0.4) % Neut % (Auto) (45-73) % Lymph % (Auto) (20-40) % [place] % (Auto) (2-11) % Eos % (Auto) (0-4) % Baso % (Auto) (0-2) % Lymph # (Auto) (1.2-4.9) X10*3/uL [place] # (Auto) (0.1-1.2) X10*3/uL Eos # (Auto) (0.0-0.4) X10*3/uL Baso # (Auto) (0.0-0.2) X10*3/uL Abs Immat Gran (auto) (0.00-0.03) X10*3/uL Absolute Neuts (auto) (2.0-8.3) X10*3/uL Absolute Nucleated RBC (0.0-0.012) X10*3/uL Nucleated RBC % (auto) (0.0-0.2) /100WBC Sodium (135-145) mmol/L Potassium (3.3-5.1) mmol/L Chloride (96-108) mmol/L Carbon Dioxide (22-29) mmol/L Anion Gap (12-20) BUN (9-16) mg/dL Creatinine (0.5-1.4) mg/dL Estim Creat Clear Calc Estimated GFR Random Glucose (60-115) mg/dL Calcium (8.4-10.2) mg/dL Magnesium (1.6-2.6) mg/dL Total Bilirubin (0.0-1.0) mg/dL Direct Bilirubin (0.0-0.5) mg/dL AST (5-31) U/L ALT (0-31) U/L Alkaline Phosphatase (39-117) U/L Total Protein (6.5-8.0) g/dL Albumin (3.5-5.0) g/dL Lipase (8-78) U/L Urine Color YELLOW Urine Appearance HAZY Urine pH 6.0 (5.0-8.0) Ur Specific [place] 1.025 (1.005-1.025) Urine Protein NEG (NEG-TRACE) MG/DL Urine Glucose (UA) NEG (NEG) MG/DL Urine Ketones NEG (NEG) MG/DL Urine Blood NEG (NEG) Urine Nitrite NEG (NEG) Ur Leukocyte Esterase NEG (NEG) COVID-19 ([facility]) (Negative) COVID-19 Clin Com Discharge Plan Discharge Clinical Impression: Acute chest wall pain Asthma Qualifiers: Asthma severity: moderate Asthma persistence: persistent Asthma complication type: with acute exacerbation Qualified Code(s): J45.41 - Moderate persistent asthma with (acute) exacerbation Patient Disposition: Home, Self-Care Instructions: Asthma (ED), Chest Wall Pain (ED) Additional Instructions: return to ED for any worsening symptoms or concerns negative UA, negative Chest xray, negative CT scan Prescriptions: New hydrocodone-homatropine 5-1.5 mg/5 mL (5 mL) syrup 5 ml PO Q6H PRN (Reason: cough) Qty: 60 RF: 0 No Action verapamil 40 mg tablet 40 mg PO DAILY Qty: 20 RF: 0 lisinopril 10 mg tablet 10 mg PO DAILY Qty: 30 RF: 0 Referrals: Hubert Alfredo MD [Primary Care Provider] - 2 days (if not better) Print Language: [place]
[2021-03-16] MEDS: Albuterol Sulfate (0.083%) 2.5 MG/3 ML VIAL.NEB INHALE (07:30)
[2021-03-16 07:31] VITALS: PULSE 60; O2SAT 100
[2021-03-16 07:41] LABS: MANUAL DIFF FLAG NO
[2021-03-16 07:42] LABS: Basophils Absolute Auto 0.1 X10*3/uL (0.0-0.2); Basophils Percent Auto 0.8 % (0-2); Eosinophils Absolute Auto 0.1 X10*3/uL (0.0-0.4); Eosinophils Percent Auto 2.2 % (0-4); Hematocrit 38.6 % (37-47); Hemoglobin 12.5 g/dl (12.0-16.0); Imm Gran Abs Auto 0.01 X10*3/uL (0.00-0.03); Imm Gran Pct Auto 0.2 % (0.0-0.4); Lymphocytes Absolute Auto 2.6 X10*3/uL (1.2-4.9); Lymphocytes Percent Auto 43.7 % (20-40); Mean Corpuscular HGB Conc 32.4 g/dl (31.0-35.0); Mean Corpuscular Volume 98.7 fL (80-98); Mean Platelet Volume 10.4 fL (9.4-12.3); Monocytes Absolute Auto 0.5 X10*3/uL (0.1-1.2); Monocytes Percent Auto 8.8 % (2-11); Neutrophils Absolute Auto 2.6 X10*3/uL (2.0-8.3); Neutrophils Percent Auto 44.3 % (45-73); Platelet Count 294 X10*3/uL (160-400); Red Blood Count 3.91 X10*6/uL (4.20-5.50); White Blood Count 5.9 X10*3/uL (4.8-10.8)
[2021-03-16 08:15] LABS: Alanine Aminotransferase 55 U/L (0-31); Albumin Level 3.9 g/dL (3.5-5.0); Alkaline Phosphatase 55 U/L (39-117); Anion Gap 14 (12-20); Aspartate Amino Transferase 36 U/L (5-31); Bilirubin Direct < 0.2 mg/dL (0.0-0.5); Bilirubin Total 0.4 mg/dL (0.0-1.0); Blood Urea Nitrogen 8 mg/dL (9-16); Calcium 9.3 mg/dL (8.4-10.2); Carbon Dioxide 24 mmol/L (22-29); Chloride 107 mmol/L (96-108); Creatinine Clr Calc Pharmacy 88.5; Estimated Glomerular Filt Rate > 60; Glucose Random 98 mg/dL (60-115); Lipase 34 U/L (8-78); Magnesium 2.2 mg/dL (1.6-2.6); Potassium 4.6 mmol/L (3.3-5.1); Sodium 140 mmol/L (135-145); Total Protein 6.4 g/dL (6.5-8.0)
[2021-03-16 08:52] LABS: COVID-19 Test Negative (Negative)
[2021-03-16] MEDS: HYDROcodone/Homat 5/1.5/5 ML 5 ML SYRUP PO (09:11)
[2021-03-16 10:00] VITALS: BP 138/75; PULSE 75; RESP 20; TEMP 36.9; O2SAT 97
[2021-03-16 10:02] LABS: Appearance Urine HAZY; Color Urine YELLOW; Glucose Urine UA NEG (NEG); Leukocyte Esterase Urine NEG (NEG); Nitrite Urine NEG (NEG); Specific Gravity - Urine 1.025 (1.005-1.025); Urine Blood NEG (NEG); Urine Ketones NEG (NEG); Urine Protein NEG (NEG-TRACE)
== END 2021-03-16 10:42 | disposition home or self-care (01) ==
PROVIDERS: Emergency Provider Emergency Medicine; PCP Internal Medicine
DX: J45.41 Moderate persistent asthma with (acute) exacerbation (principal); R07.81 Pleurodynia; R10.9 Unspecified abdominal pain; R07.89 Other chest pain; Z20.822 Contact with and (suspected) exposure to COVID-19; Z79.899 Other long term (current) drug therapy
CPT/HCPCS: 36415; 71045; 74176; 80048; 80076; 81003; 83690; 83735; 85025; 87635; 94640; 96374; 99284

== ENCOUNTER 2021-04-09 11:00 | Emergency (ER) | payer MEDICARE, SELFPAY ==
--- NOTE | ~2021-04-09 | XR_ITS ---
EXAMINATION: XR CHEST CLINICAL INFORMATION: Cough. COMPARISON: None TECHNIQUE: 2 views of the chest were obtained. FINDINGS: The lungs are well-expanded and clear of acute process. Heart size and pulmonary vascularity is normal. There is mild degenerative changes bilateral AC joints. There is mild spondylosis dorsal spine.. XR/XR chest 2V IMPRESSION: No acute cardiopulmonary process seen.
[2021-04-09 11:32] VITALS: BP 105/69; PULSE 76; RESP 20; TEMP 37.1; O2SAT 97; BMI 34.7
--- NOTE | 2021-04-09 14:26 | ED.GENADULT ---
HPI - General Adult General Chief complaint: General Medical <HELENA Ohara - Last Filed: 04/09/21 16:40> Stated complaint: Hernia/SOB <HELENA Ohara - Last Filed: 04/09/21 16:40> Time Seen by Provider: 04/09/21 14:21 <HELENA Ohara Last Filed: 04/09/21 16:40> Source: patient <HELENA Ohara Last Filed: 04/09/21 16:40> Mode of arrival: ambulatory <HELENA Ohara Last Filed: 04/09/21 16:40> Limitations: no limitations <HELENA Ohara Last Filed: 04/09/21 16:40> History of Present Illness HPI narrative: 65-year-old female past medical history significant for hypertension presents to the emergency department with complaints of a dry cough X3 weeks and abdominal pain X2 days. She states that the cough is dry in nature, it has not worsened over the past 3 weeks, however it has stayed consistent. She states she is not coughing anything up. She also mentions she is having abdominal pain surrounding her belly button, she states she has a hernia that usually does not hurt, however over the past 2 days she has been having severe pain to the hernia she rates it a 7/10. She reports she had bariatric surgery in early February, with no complications. She has also gotten a cholecystectomy years ago. Denies shortness of breath, chest pain, fevers, chills, nausea, vomiting, weakness. <HELENA Ohara - Last Filed: 04/09/21 16:40> MD complaint: cough and abd pain <HELENA Ohara Last Filed: 04/09/21 16:40> Onset (ago): day(s) (2) <HELENA Ohara Last Filed: 04/09/21 16:40> Location: abdomen <HELENA Ohara Last Filed: 04/09/21 16:40> Radiation: non-radiation <HELENA Ohara Last Filed: 04/09/21 16:40> Severity: moderate <HELENA Ohara Last Filed: 04/09/21 16:40> Severity scale (1-10): 7 <HELENA Ohara Last Filed: 04/09/21 16:40> Quality: stabbing and aching <HELENA Ohara Last Filed: 04/09/21 16:40> Pain Consistency: constant <HELENA Ohara Last Filed: 04/09/21 16:40> Relieving factors: none <HELENA Ohara Last Filed: 04/09/21 16:40> Exacerbating factors: movement and other (palpation and coughing) <HELENA Ohara Last Filed: 04/09/21 16:40> Treatments prior to arrival: none <HELENA Ohara Last Filed: 04/09/21 16:40> Related Data Home medications: Previous Rx's Medication Instructions Recorded verapamil 40 mg tablet 40 mg PO DAILY #20 tab 12/24/20 lisinopril 10 mg tablet 10 mg PO DAILY #30 tab 01/05/21 hydrocodone-homatropine 5 mg-1.5 5 ml PO Q6H PRN #60 ml 03/16/21 mg/5 mL (5 mL) oral syrup benzonatate 100 mg capsule 100 mg PO BID PRN #14 cap 04/09/21 (Tessalon Perles) hydromorphone 2 mg tablet 2 mg PO Q6H PRN #5 tab 04/09/21 (Dilaudid) <HELENA Ohara Last Filed: 04/09/21 16:40> Allergies/adverse reactions: Allergies Allergy/AdvReac Type Severity Reaction Status Date / Time codeine Allergy Itching Verified 12/23/20 21:45 <HELNEA Ohara Last Filed: 04/09/21 16:40> Review of Systems Review of Systems: Constitutional: No Fever, No Chills ENT/Mouth: No sore throat, No Rhinorrhea, No Swallowing Difficulty Eyes: No Eye Pain, No Swelling, No Redness Cardiovascular: No Chest Pain, No SOB, No Orthopnea, No Edema Respiratory: + Cough, No Sputum, No Wheezing, No dyspnea Gastrointestinal: No Nausea, No Vomiting, No Diarrhea, + abdominal Pain, No Hematochezia, No Melena Genitourinary: No Dysuria, No Urinary Frequency, No Hematuria Musculoskeletal: No joint pain, No Myalgias Skin: No Skin Lesions, No rash Neuro: No Weakness, No Numbness, No Dizziness, No Headache <HELENA Ohara - Last Filed: 04/09/21 16:40> [facility] Past Medical History Source: old records reviewed and nursing notes reviewed <HELENA Ohara - Last Filed: 04/09/21 16:40> Medical History: Medical History Anxiety Depression Diabetes HTN (hypertension) Migraines <HELENA Ohara - Last Filed: 04/09/21 16:40> Surgical History: Surgical History H/O bariatric surgery Hx of cholecystectomy <HELENA Ohara - Last Filed: 04/09/21 16:40> Social History Social History: Social History Alcohol intake: never Patient Tobacco Use Status: Never used Tobacco Advance Directives: No <HELENA Ohara - Last Filed: 04/09/21 16:40> Physical Exam Vital Signs: Vital Signs: Last Vital Signs Temp 98.8 F 04/09/21 11:32 Pulse 69 04/09/21 15:37 Resp 18 04/09/21 15:37 BP 133/73 04/09/21 15:37 Pulse Ox 99 04/09/21 15:37 Body Mass Index 34.7 <HELENA Ohara - Last Filed: 04/09/21 16:40> Vital Signs: Last Vital Signs Temp 98.8 F 04/09/21 11:32 Pulse 69 04/09/21 15:37 Resp 18 04/09/21 15:37 BP 133/73 04/09/21 15:37 Pulse Ox 99 04/09/21 15:37 Body Mass Index 34.7 <Walter Miranda MD - Last Filed: 04/09/21 15:26> Appearance: Alert. Oriented X3. No acute distress. Eyes: Pupils equal, round and reactive to light. ENT: Pharynx normal. Neck: Normal inspection. Neck supple. CVS: Normal heart rate and rhythm. Pulses normal. Respiratory: No respiratory distress. Breath sounds normal. Abdomen: Soft and nontender. +BS x4 + small non reducible umbilical hernia noted, tender, no erythema or edema Skin: Skin warm and dry. Normal skin color. Normal skin turgor. No rashes. Extremities: No lower extremity edema. Neuro: Oriented X 3. No motor deficit. No sensory deficit. <HELENA Ohara - Last Filed: 04/09/21 16:40> Course Course Course Narrative: 65-year-old female past medical history significant for hypertension presents to the emergency department with abdominal pain x2 days, and a dry cough x3 weeks. She states she had a bariatric surgery performed early at [facility]. The abdominal pain is likely stemming from a hernia she has in the umbilical region, which is currently non reducible. Patient states that this hernia is usually not painful but over the past 2 days as be come very painful. She denies any other symptoms at this time Upon exam abdomen is soft and only tender around the umbilicus, nondistended. No adventitious lung sounds noted. No weakness noted <EHLENA Ohara - Last Filed: 04/09/21 16:40> Reevaluation(s) Reevaluation #1: I reduced small umbilical/surgical hernia will refer patient back to bariatric surgeon as she is 7 weeks post op from bariatric surgery. <Walter Miranda MD - Last Filed: 04/09/21 15:26> Time: 15:26 <Walter Miranda MD - Last Filed: 04/09/21 15:26> Reevaluation #2: Reached out to [facility] bariatric surgeon Dr. Burch spoke to him personally, who states that this needs to be fixed with in 24 hours. He states I can reach out to our surgeons here, however he will be covering [facility] surgery tomorrow morning, so she can come in through the emergency department tomorrow morning be evaluated, and he will look out for the patient's name, and take her to the OR tomorrow. He states that it is up to the patient. Will inform the patient about this. <HELENA Ohara - Last Filed: 04/09/21 16:40> Time: 15:30 <HELENA Ohara - Last Filed: 04/09/21 16:40> Reevaluation #3: Spoke to patient and daughter, which state that they will proceed with surgery at [facility]. I have informed them that they need to check in as a regular emergency department patient tomorrow, and Dr. Burch will be covering the surgical service. Will send them home with detailed discharge instructions <HELENA Ohara - Last Filed: 04/09/21 16:40> Medical Decision Making Lab Data Result diagrams: : 04/09/21 15:47 04/09/21 15:47 <HELENA Ohara - Last Filed: 04/09/21 16:40> Labs: Lab Results 04/09/21 04/09/21 04/09/21 Range/Units 15:47 15:47 15:47 WBC 6.5 (4.8-10.8) X10*3/uL RBC 3.96 L (4.20-5.50) X10*6/uL Hgb 12.6 (12.0-16.0) g/dl Hct 39.3 (37-47) % MCV 99.2 H (80-98) fL MCH 31.8 (27.0-33.0) pg MCHC 32.1 (31.0-35.0) g/dl RDW 13.7 (11.0-16.0) % Plt Count 251 (160-400) X10*3/uL MPV 10.3 (9.4-12.3) fL Immature Gran % (Auto) 0.2 (0.0-0.4) % Neut % (Auto) 55.4 (45-73) % Lymph % (Auto) 34.3 (20-40) % Ritchie % (Auto) 8.5 (2-11) % Eos % (Auto) 0.8 (0-4) % Baso % (Auto) 0.8 (0-2) % Lymph # (Auto) 2.2 (1.2-4.9) X10*3/uL Ritchie # (Auto) 0.6 (0.1-1.2) X10*3/uL Eos # (Auto) 0.1 (0.0-0.4) X10*3/uL Baso # (Auto) 0.1 (0.0-0.2) X10*3/uL Abs Immat Gran (auto) 0.01 (0.00-0.03) X10*3/uL Absolute Neuts (auto) 3.6 (2.0-8.3) X10*3/uL Absolute Nucleated RBC 0.000 (0.0-0.012) X10*3/uL Nucleated RBC % (auto) 0.0 (0.0-0.2) /100WBC Sodium 141 (135-145) mmol/L Potassium 4.7 (3.3-5.1) mmol/L Chloride 105 (96-108) mmol/L Carbon Dioxide 29 (22-29) mmol/L Anion Gap 12 (12-20) BUN 8 L (9-16) mg/dL Creatinine 0.66 (0.5-1.4) mg/dL Estim Creat Clear Calc 85.3 Estimated GFR > 60 Random Glucose 104 (60-115) mg/dL Calcium 9.4 (8.4-10.2) mg/dL COVID-19 (DAMARIS) Negative (Negative) COVID-19 Clin Com See Note <HELENA Ohara - Last Filed: 04/09/21 16:40> Lab Results 04/09/21 04/09/21 04/09/21 Range/Units 15:47 15:47 15:47 WBC 6.5 (4.8-10.8) X10*3/uL RBC 3.96 L (4.20-5.50) X10*6/uL Hgb 12.6 (12.0-16.0) g/dl Hct 39.3 (37-47) % MCV 99.2 H (80-98) fL MCH 31.8 (27.0-33.0) pg MCHC 32.1 (31.0-35.0) g/dl RDW 13.7 (11.0-16.0) % Plt Count 251 (160-400) X10*3/uL MPV 10.3 (9.4-12.3) fL Immature Gran % (Auto) 0.2 (0.0-0.4) % Neut % (Auto) 55.4 (45-73) % Lymph % (Auto) 34.3 (20-40) % Ritchie % (Auto) 8.5 (2-11) % Eos % (Auto) 0.8 (0-4) % Baso % (Auto) 0.8 (0-2) % Lymph # (Auto) 2.2 (1.2-4.9) X10*3/uL Ritchie # (Auto) 0.6 (0.1-1.2) X10*3/uL Eos # (Auto) 0.1 (0.0-0.4) X10*3/uL Baso # (Auto) 0.1 (0.0-0.2) X10*3/uL Abs Immat Gran (auto) 0.01 (0.00-0.03) X10*3/uL Absolute Neuts (auto) 3.6 (2.0-8.3) X10*3/uL Absolute Nucleated RBC 0.000 (0.0-0.012) X10*3/uL Nucleated RBC % (auto) 0.0 (0.0-0.2) /100WBC Sodium 141 (135-145) mmol/L Potassium 4.7 (3.3-5.1) mmol/L Chloride 105 (96-108) mmol/L Carbon Dioxide 29 (22-29) mmol/L Anion Gap 12 (12-20) BUN 8 L (9-16) mg/dL Creatinine 0.66 (0.5-1.4) mg/dL Estim Creat Clear Calc 85.3 Estimated GFR > 60 Random Glucose 104 (60-115) mg/dL Calcium 9.4 (8.4-10.2) mg/dL COVID-19 (DAMARIS) Negative (Negative) COVID-19 Clin Com See Note <Walter Miranda MD - Last Filed: 04/09/21 15:26> Discharge Plan Discharge Clinical Impression: Cough Hernia, umbilical Qualifiers: Obstruction and gangrene presence: without obstruction or gangrene Qualified Code(s): K42.9 - Umbilical hernia without obstruction or gangrene <HELENA Ohara - Last Filed: 04/09/21 16:40> Patient Disposition: Home, Self-Care <HELENA Ohara - Last Filed: 04/09/21 16:40> Instructions: Umbilical Hernia (ED), Acute Cough (ED), Umbilical Hernia Repair (DC) <HELENA Ohara - Last Filed: 04/09/21 16:40> Additional Instructions: Today one of our staff members was able to speak with . He recommends that tomorrow you go to [facility] emergency department, he will be covering the surgical service, and he will likely be taking you to the OR. You will need to check in as an emergency department patient. It is important that tomorrow morning you go to [facility]. He is aware of your situation. We explained to him that your Hernia is really bothering you and causing 8/10 pain, we were able to reduce the hernia but it continued to come out. Your labs and chest x-ray today were normal Take medications as prescribed- kajal sanchez are for cough Return to the emergency department with new or worsening symptoms. <HELENA Ohara - Last Filed: 04/09/21 16:40> Prescriptions: New benzonatate [Tessalon Perles] 100 mg capsule 100 mg PO BID PRN (Reason: cough) Qty: 14 RF: 0 hydromorphone [Dilaudid] 2 mg tablet 2 mg PO Q6H PRN (Reason: pain) Qty: 5 RF: 0 No Action verapamil 40 mg tablet 40 mg PO DAILY Qty: 20 RF: 0 lisinopril 10 mg tablet 10 mg PO DAILY Qty: 30 RF: 0 hydrocodone-homatropine 5-1.5 mg/5 mL (5 mL) syrup 5 ml PO Q6H PRN (Reason: cough) Qty: 60 RF: 0 <HELENA Ohara - Last Filed: 04/09/21 16:40> Referrals: Mayda Burch MD [Physician] - 1 day (To [facility] is emergency department tomorrow morning, has been told about your case.) <HELENA Ohara - Last Filed: 04/09/21 16:40> Print Language: Turkish <HELENA Ohara - Last Filed: 04/09/21 16:40>
[2021-04-09 15:37] VITALS: BP 133/73; PULSE 69; RESP 18; O2SAT 99
[2021-04-09 16:04] LABS: MANUAL DIFF FLAG NO
[2021-04-09 16:06] LABS: Basophils Absolute Auto 0.1 X10*3/uL (0.0-0.2); Basophils Percent Auto 0.8 % (0-2); Eosinophils Absolute Auto 0.1 X10*3/uL (0.0-0.4); Eosinophils Percent Auto 0.8 % (0-4); Hematocrit 39.3 % (37-47); Hemoglobin 12.6 g/dl (12.0-16.0); Imm Gran Abs Auto 0.01 X10*3/uL (0.00-0.03); Imm Gran Pct Auto 0.2 % (0.0-0.4); Lymphocytes Absolute Auto 2.2 X10*3/uL (1.2-4.9); Lymphocytes Percent Auto 34.3 % (20-40); Mean Corpuscular HGB Conc 32.1 g/dl (31.0-35.0); Mean Corpuscular Hemoglobin 31.8 pg (27.0-33.0); Mean Corpuscular Volume 99.2 fL (80-98); Mean Platelet Volume 10.3 fL (9.4-12.3); Monocytes Absolute Auto 0.6 X10*3/uL (0.1-1.2); Monocytes Percent Auto 8.5 % (2-11); Neutrophils Absolute Auto 3.6 X10*3/uL (2.0-8.3); Neutrophils Percent Auto 55.4 % (45-73); Platelet Count 251 X10*3/uL (160-400); Red Blood Count 3.96 X10*6/uL (4.20-5.50); Red Cell Distribution Width 13.7 % (11.0-16.0); White Blood Count 6.5 X10*3/uL (4.8-10.8)
[2021-04-09 16:17] LABS: Anion Gap 12 (12-20); Blood Urea Nitrogen 8 mg/dL (9-16); Calcium 9.4 mg/dL (8.4-10.2); Carbon Dioxide 29 mmol/L (22-29); Chloride 105 mmol/L (96-108); Creatinine Clr Calc Pharmacy 85.3; Estimated Glomerular Filt Rate > 60; Glucose Random 104 mg/dL (60-115); Potassium 4.7 mmol/L (3.3-5.1); Sodium 141 mmol/L (135-145)
[2021-04-09 16:21] LABS: COVID-19 Test Negative (Negative)
[2021-04-09] MEDS: HYDROmorphone HCl 2 MG TABLET PO (16:24)
== END 2021-04-09 16:44 | disposition home or self-care (01) ==
PROVIDERS: Physician Assistant; Emergency Provider Emergency Medicine Emergency Medical Services; PCP Internal Medicine
DX: R05.9 Cough, unspecified (principal); I10 Essential (primary) hypertension; R06.02 Shortness of breath; Z20.822 Contact with and (suspected) exposure to COVID-19; Z79.899 Other long term (current) drug therapy
CPT/HCPCS: 36415; 71046; 80048; 85025; 87635; 99283; 99284

== ENCOUNTER 2021-05-11 13:02 | Outpatient (REF) | payer MEDICARE, SELFPAY | END 2021-05-11 13:03 | disposition home or self-care (01) | LOC: HO.LAB 13:02 | PROVIDERS: PCP Internal Medicine; Visit Provider Internal Medicine | DX: Z20.822 Contact with and (suspected) exposure to COVID-19 (principal) | CPT/HCPCS: C9803; U0003; U0005 ==

== ENCOUNTER 2021-05-14 10:34 | Emergency (ER) | payer MEDICARE, SELFPAY ==
--- NOTE | ~2021-05-14 | XR_ITS ---
EXAMINATION: XR CHEST CLINICAL INFORMATION: Cough. COMPARISON: None TECHNIQUE: Frontal view of the chest was obtained. FINDINGS: The lungs are well-expanded and clear of acute pneumonic process. The heart size and pulmonary vascularity is normal. There is mild spondylosis of dorsal spine. No lytic process. XR/XR chest 1V IMPRESSION: Unremarkable chest examination.
[2021-05-14 10:40] VITALS: BP 156/87; PULSE 88; RESP 20; TEMP 37.1; O2SAT 99; BMI 22.4
--- NOTE | 2021-05-14 10:49 | ED_ITS ---
HPI - URI/Sore Throat General Chief Complaint: General Medical Stated Complaint: flu like symptoms Time Seen by Provider: 05/14/21 10:43 Source: patient Mode of arrival: ambulatory Limitations: no limitations History of Present Illness MD elicited complaint: cough and other (body aches) Pertinent past history: asthma Onset (ago): day(s) (7) Consistency: constant Severity: moderate Description of mucous: clear Able to tolerate fluids by mouth: Yes Relieving factors: other (has been doing her neb treatments) Context: sick contacts (negative COVID tests but daughter and grandson both had colds) Associated symptoms: myalgias, headache, rhinorrhea and cough Treatments prior to arrival: other (tylenol and breathing treatments) Related Data Previous Rx's Medication Instructions Recorded verapamil 40 mg tablet 40 mg PO DAILY #20 tab 12/24/20 lisinopril 10 mg tablet 10 mg PO DAILY #30 tab 01/05/21 hydrocodone-homatropine 5 mg-1.5 5 ml PO Q6H PRN #60 ml 03/16/21 mg/5 mL (5 mL) oral syrup benzonatate 100 mg capsule 100 mg PO BID PRN #14 cap 04/09/21 (Tessalon Perles) hydromorphone 2 mg tablet 2 mg PO Q6H PRN #5 tab 04/09/21 (Dilaudid) azithromycin 250 mg tablet See Rx Instructions .ROUTE 05/14/21 .COMPLEX #6 tab prednisone 20 mg tablet 40 mg PO DAILY 5 Days #10 tab 05/14/21 Allergies Allergy/AdvReac Type Severity Reaction Status Date / Time codeine Allergy Itching Verified 12/23/20 21:45 Review of Systems Review of Systems: Constitutional : No Weight loss, No Fever, No Chills, No Fatigue, pos Malaise ENT/Mouth : No sore throat, pos Rhinorrhea Eyes: No Eye Pain, No Swelling, No Redness Cardiovascular : No Chest Pain, No SOB, No Dyspnea on Exertion, No Orthopnea, No Edema, No Palpitations Respiratory : pos Cough, pos Sputum, No Wheezing Gastrointestinal : No Nausea, No Vomiting, No Diarrhea, No Constipation, No abdominal Pain, No Hematochezia, No Melena Genitourinary : No Dysuria, No Urinary Frequency, No Hematuria, Musculoskeletal : No joint pain, pos Myalgias, No Joint Swelling Skin : No Skin Lesions, No rash Neuro : No Weakness, No Numbness, No Dizziness, No Headache Psych : No Anxiety/Panic, No Depression Heme/Lymph: No Bruising, No Bleeding,No Lymphadenopathy Endocrine : No Polyuria, No Polydipsia All other systems reviewed and are negative [facility] Past Medical History Attestation statement: The following information was validated with the patient. Medical History Anxiety Asthma Depression Diabetes HTN (hypertension) Migraines Surgical History H/O bariatric surgery Hx of cholecystectomy Social History Social History Alcohol intake: never Patient Tobacco Use Status: Never used Tobacco Advance Directives: No Physical Exam Vital Signs: Vital Signs: Last Vital Signs Temp 98.7 F 05/14/21 10:40 Pulse 88 05/14/21 10:40 Resp 20 05/14/21 10:40 BP 156/87 H 05/14/21 10:40 Pulse Ox 99 05/14/21 10:40 Body Mass Index 22.4 Appearance: Alert. Oriented X3. No acute distress. Eyes: Pupils equal, round and reactive to light. ENT: Pharynx normal. Neck: Normal inspection. Neck supple. CVS: Normal heart rate and rhythm. Pulses normal. Respiratory: No respiratory distress. Breath sounds normal. Abdomen: Soft and nontender. Skin: Skin warm and dry. Normal skin color. Normal skin turgor. Extremities: No lower extremity edema. No calf ttp Neuro: Oriented X 3. No motor deficit. No sensory deficit. Course Course Course Narrative: O2 levels normal - no hypoxia no resp distress, stable for DC home patient is vaccinated MDM - URI/Sore Throat MDM Narrative Medical decision making narrative: 65 yo female with hx of HTN, DM, asthma was exposed to a cold by family members everyone has tested negative for COVID, she has been using her neb machine but notes her body aches and cough won't go away. She overall states it is not too bad. She does not have chest pain but her whole body hurts. She will not take steroids as it greatly affects her blood sugars at this time she is not hypoxic not toxic, clear lungs - no wheezing will obtain COVID swab and CXR - treat for bronchitis Lab Data Labs: Lab Results 05/14/21 Range/Units 11:00 COVID-19 (DAMARIS) Positive A (Negative) COVID-19 Clin Com See Note Discharge Plan Discharge Clinical Impression: Bronchitis, COVID-19 Patient Disposition: Home, Self-Care Instructions: Acute Bronchitis (ED), COVID-19 (Coronavirus Disease 2019) (ED) Additional Instructions: return to ED for any worsening symptoms or concerns if you are so short of breath you cannot walk to your bathroom you need to come back wear a mask quarantine and protect others Prescriptions: New azithromycin 250 mg tablet See Rx Instructions .ROUTE .COMPLEX Qty: 6 RF: 0 prednisone 20 mg tablet 40 mg PO DAILY 5 Days Qty: 10 RF: 0 No Action verapamil 40 mg tablet 40 mg PO DAILY Qty: 20 RF: 0 lisinopril 10 mg tablet 10 mg PO DAILY Qty: 30 RF: 0 hydrocodone-homatropine 5-1.5 mg/5 mL (5 mL) syrup 5 ml PO Q6H PRN (Reason: cough) Qty: 60 RF: 0 benzonatate [Tessalon Perles] 100 mg capsule 100 mg PO BID PRN (Reason: cough) Qty: 14 RF: 0 hydromorphone [Dilaudid] 2 mg tablet 2 mg PO Q6H PRN (Reason: pain) Qty: 5 RF: 0 Referrals: Hubert Alfredo MD [Primary Care Provider] - 5 days (as needed if not better) Print Language: Taiwanese
[2021-05-14 11:21] LABS: COVID-19 Test Positive (Negative)
[2021-05-14 12:04] VITALS: RESP 19; O2SAT 96
== END 2021-05-14 12:06 | disposition home or self-care (01) ==
PROVIDERS: Emergency Provider Emergency Medicine; PCP Internal Medicine
DX: U07.1 COVID-19 (principal); J20.8 Acute bronchitis due to other specified organisms; Z79.899 Other long term (current) drug therapy
CPT/HCPCS: 36415; 71045; 87635; 99283

== ENCOUNTER 2022-06-02 11:00 | Emergency (ER) | payer MEDICARE, SELFPAY ==
[2022-06-02 12:13] VITALS: BP 122/71; PULSE 71; RESP 17; TEMP 35.9; O2SAT 98; BMI 33.3
--- NOTE | 2022-06-02 12:15 | ED.GENADULT ---
HPI - General Adult General Chief complaint: Upper Respiratory Symptoms <Jazzy Mendoza NP - Last Filed: 06/02/22 12:20> Stated complaint: flu like symptoms, fever <Jazzy Mendoza NP - Last Filed: 06/02/22 12:20> Time Seen by Provider: 06/02/22 14:21 <Jazzy Mendoza NP - Last Filed: 06/02/22 12:20> Source: patient <HELENA Gan - Last Filed: 06/02/22 18:39> Mode of arrival: ambulatory <HELENA Gan - Last Filed: 06/02/22 18:39> Limitations: no limitations <HELENA Gan - Last Filed: 06/02/22 18:39> History of Present Illness HPI narrative: Patient is a 66 year old assigned female at with no reported medical history presenting to the emergency department today with a cough. Patient states that over the last 5 days, she has had a cough. Patient denies any dizziness, lightheadedness, abdominal pain, nausea, vomiting, fever, chills, blurry vision, double vision, loss of vision, chest pain, difficulty breathing, shortness of breath, back pain, night sweats, pain with urination, increased urinary frequency, increased urinary urgency, blood in her urine or stool, syncope or a near syncopal episode, recent trauma or falls, bowel incontinence, bladder incontinence, bowel retention, bladder retention, or any other complaints at this time. <HELENA Gan - Last Filed: 06/02/22 18:39> Onset (ago): day(s) (5) <HELENA Gan - Last Filed: 06/02/22 18:39> Severity: mild <HELENA Gan - Last Filed: 06/02/22 18:39> Severity scale (1-10): 2 <HELENA Gan - Last Filed: 06/02/22 18:39> Relieving factors: none <HELENA Gan - Last Filed: 06/02/22 18:39> Exacerbating factors: none <HELENA aGn Last Filed: 06/02/22 18:39> Associated symptoms: cough <HELENA Gan - Last Filed: 12/14/22 18:39> Treatments prior to arrival: none <HELENA Gan - Last Filed: 06/02/22 18:39> Related Data Home medications: Previous Rx's Medication Instructions Recorded verapamil 40 mg tablet 40 mg PO DAILY #20 tabs 12/24/20 lisinopril 10 mg tablet 10 mg PO DAILY #30 tabs 01/05/21 hydrocodone-homatropine 5 mg-1.5 5 ml PO Q6H PRN cough #60 mL 03/16/21 mg/5 mL (5 mL) oral syrup benzonatate 100 mg capsule 100 mg PO BID PRN cough #14 caps 04/09/21 (Tessalon Perles) hydromorphone 2 mg tablet 2 mg PO Q6H PRN pain #5 tabs 04/09/21 (Dilaudid) azithromycin 250 mg tablet See Rx Instructions PO .COMPLEX #6 05/14/21 tabs prednisone 20 mg tablet 40 mg PO DAILY 5 days #10 tabs 05/14/21 <Jazzy Mendoza NP - Last Filed: 06/02/22 12:20> Allergies/adverse reactions: Allergies Allergy/AdvReac Type Severity Reaction Status Date / Time codeine Allergy Itching Verified 12/23/20 21:45 <Jazzy Mendoza NP - Last Filed: 06/02/22 12:20> Review of Systems Constitutional: Constitutional: Reports no additional constitutional complaints, Denies chills, Denies fever(s) and Denies night sweats <HELENA Gan - Last Filed: 06/02/22 18:39> Eyes: Eyes: Reports no additional eye complaints, Denies blurry vision, Denies change in vision, Denies diplopia, Denies eye discharge, Denies loss of vision and Denies eye pain <HELENA Gan Last Filed: 06/02/22 18:39> ENT: Denies dizziness <HELENA Gan Last Filed: 06/02/22 18:39> Cardiovascular: Cardiovascular: Reports no additional cardiovascular complaints, Denies chest pain, Denies lightheadedness, Denies Loss of Consciousness and Denies dyspnea <HELENA Gan Last Filed: 06/02/22 18:39> Respiratory: Respiratory: Reports no additional respiratory complaints, Reports cough and Denies dyspnea <HELENA Gan - Last Filed: 06/02/22 18:39> Gastrointestinal: Gastrointestinal: Reports no additional gastrointestinal complaints, Denies abdominal pain, Denies melena, Denies hematochezia, Denies change in bowel habits and Denies change in stool character <HELENA Gan - Last Filed: 06/02/22 18:39> Genitourinary: Genitourinary: Denies hematuria, Denies urinary frequency, Denies dysuria, Denies urinary incontinence, Denies urinary hesitancy and Denies urinary urgency <HELENA Gan - Last Filed: 06/02/22 18:39> Musculoskeletal: Musculoskeletal: Reports no additional musculoskeletal complaints, Denies numbness and Denies tingling <HELENA Gan - Last Filed: 06/02/22 18:39> Neurologic: Denies dizziness, Denies loss of vision, Denies numbness and Denies tingling <HELENA Gan - Last Filed: 06/02/22 18:39> Psychiatric: Psychiatric: Reports no additional psychiatric complaints <HELENA Gan - Last Filed: 06/02/22 18:39> Endocrine: Endocrine: Reports no additional endocrine complaints <HELENA Gan - Last Filed: 06/02/22 18:39> Hematologic/Lymphatic: Hematologic/Lymphatic: Reports no additional hematologic/lymphatic complaints <HELENA Gan - Last Filed: 06/02/22 18:39> Allergic/Immunologic: Allergic/Immunologic: Reports no additional allergic/immunologic complaints <HELENA Gan - Last Filed: 06/02/22 18:39> PMF Past Medical History Attestation statement: The following information was validated with the patient. <HELENA Gan - Last Filed: 06/02/22 18:39> Source: old records reviewed and nursing notes reviewed <HELENA Gan - Last Filed: 06/02/22 18:39> Medical History: Medical History Anxiety Asthma Depression Diabetes HTN (hypertension) Migraines <Jazzy Mendoza NP - Last Filed: 06/02/22 12:20> Surgical History: Surgical History H/O bariatric surgery Hx of cholecystectomy <Jazzy Mendoza NP - Last Filed: 06/02/22 12:20> Social History Social History: Social History Alcohol intake: never Patient Tobacco Use Status: Never used Tobacco Advance Directives: No Advance Directives Information Provided: Yes <Jazzy Mendoza NP - Last Filed: 06/02/22 12:20> Physical Exam ED Vital Signs: Vital Signs - 24 hr 06/02/22 12:13 Temperature 96.6 F L Pulse Rate 71 Respiratory Rate 17 Blood Pressure 122/71 Pulse Oximetry 98 Oxygen Delivery Method Room Air BMI result Body Mass Index 33.3 <Jazzy Mendoza NP - Last Filed: 06/02/22 12:20> Vital Signs - 24 hr 06/02/22 12:13 Temperature 96.6 F L Pulse Rate 71 Respiratory Rate 17 Blood Pressure 122/71 Pulse Oximetry 98 Oxygen Delivery Method Room Air BMI result Body Mass Index 33.3 <HELENA Gan - Last Filed: 06/02/22 18:39> Const General: cooperative, no acute distress, alert and awake <HELENA Gan - Last Filed: 06/02/22 18:39> Nutritional Appearance: well nourished <HELENA Gan - Last Filed: 06/02/22 18:39> Orientation/consciousness: patient oriented x3 <HELENA Gan - Last Filed: 06/02/22 18:39> Limitations: no limitations <HELENA Gan - Last Filed: 06/02/22 18:39> HENMT Head: Yes normal to inspection and Yes atraumatic <HELENA Gan - Last Filed: 06/02/22 18:39> Ears: hearing grossly normal bilaterally and external ears normal <HELENA Gan - Last Filed: 06/02/22 18:39> General nose exam: Normal external nose present, no nasal discharge noted and no epistaxis <HELENA Gan - Last Filed: 06/02/22 18:39> Face and sinus: Yes normal facial exam, No abrasion and No laceration <Michelle Mayerspascual ND - Last Filed: 06/02/22 18:39> Mouth: Normal oral and palatal mucosa present, no drooling and no muffled voice <Michelle Mayerspascual ND - Last Filed: 06/02/22 18:39> Eyes General: appearance normal, both eyes and all related structures <Michellenohemy Mayerspascual ND - Last Filed: 06/02/22 18:39> Periorbital: periorbital findings normal <Michelle Mayerspascual ND - Last Filed: 06/02/22 18:39> Eyelids: Yes eyelids normal <Michellenohemy Mayerspascual ND - Last Filed: 06/02/22 18:39> Conjunctivae: conjunctivae normal <Michelle Mayerspascual ND - Last Filed: 06/02/22 18:39> Pupils: Equal, round and reactive pupils present <Michellenohemy Mayerspascual ND - Last Filed: 06/02/22 18:39> EOM: EOMs intact bilaterally <Michellenohemy Mayerspascual ND - Last Filed: 06/02/22 18:39> Neck Neck: Yes normal visual inspection, Yes full ROM and Yes no lymphadenopathy <Michellenohemy Mayerspascual ND - Last Filed: 06/02/22 18:39> Chest Chest palpation & inspection: normal inspection of the chest <Michellenohemy Mayerspascual ND - Last Filed: 06/02/22 18:39> Resp Effort & Inspection: normal respiratory effort and able to speak in complete sentences <HELENA Gan - Last Filed: 06/02/22 18:39> Auscultation: clear to auscultation bilaterally <Michelle Mayerspascual ND - Last Filed: 06/02/22 18:39> Cardio Rate: regular rate <Michelle Leandra ND - Last Filed: 06/02/22 18:39> Rhythm: regular rhythm <Michelle HELENA Mobley - Last Filed: 06/02/22 18:39> GI Inspection: Yes normal to inspection <Michelle Leandra ND - Last Filed: 06/02/22 18:39> Neuro General: patient oriented x3 and moves all extremities <Michelle Mobley ND - Last Filed: 06/02/22 18:39> Cranial nerves: Yes Equal, round and reactive pupils present <HELENA Gan - Last Filed: 06/02/22 18:39> Cognition (Neuro): normal cognition <HELENA Gan - Last Filed: 06/02/22 18:39> Motor exam (neuro): 5/5 motor strength present throughout <HELENA Gan - Last Filed: 06/02/22 18:39> Sensory Exam: Normal double simultaneous stimulation for sensation <HELENA Gan - Last Filed: 06/02/22 18:39> Coordination: [id number] test normal <HELENA Gan - Last Filed: 06/02/22 18:39> Extrem General: Yes normal to inspection, Yes full ROM and Yes capillary refill normal <HELENA Gan - Last Filed: 06/02/22 18:39> Psych Appearance: grossly normal <HELENA Gan - Last Filed: 06/02/22 18:39> Mental Status: mental status grossly normal <HELENA Gan - Last Filed: 06/02/22 18:39> Affect: normal affect <HELENA Gan - Last Filed: 06/02/22 18:39> Attitude: cooperative <HELENA Gan - Last Filed: 06/02/22 18:39> Thought process: Normal thought process present <HELENA Gan - Last Filed: 06/02/22 18:39> Thought content: Normal thought content present <HELENA Gan - Last Filed: 06/02/22 18:39> Insight: Good insight present (Psych) <HELENA Gan - Last Filed: 06/02/22 18:39> Course Course Course Narrative: This is a rapid medical exam. Deferred additional HPI, ROS, PE to primary provider. 66 yo female with history of asthma, HTN, DM, gastric sleeve here with diarrhea, cough, wheezing, body aches, tactile temps x 5 days. Grandson flu + one week ago. Mild exp wheezing in triage. VSS. Will check for flu, covid, rsv. Will give albuterol MDI. <Jazzy Mendoza NP - Last Filed: 06/02/22 12:20> Medications Administered Discontinued Medications Generic Name Dose Route Start Last Admin Trade Name Edward PRN Reason Stop Dose Admin Albuterol Sulfate 2 puff 06/02/22 12:17 06/02/22 12:31 Albuterol Sulfate 90 Mcg 8 Gm Inhaler INHALE 06/02/22 12:18 2 puff ONCE ONE Administration <Jazzy Mendoza NP - Last Filed: 06/02/22 12:20> Medications Administered Discontinued Medications Generic Name Dose Route Start Last Admin Trade Name Freq PRN Reason Stop Dose Admin Albuterol Sulfate 2 puff 06/02/22 12:17 06/02/22 12:31 Albuterol Sulfate 90 Mcg 8 Gm Inhaler INHALE 06/02/22 12:18 2 puff ONCE ONE Administration <HELENA Gan - Last Filed: 06/02/22 18:39> Medical Decision Making Medical Decision Making MDM Narrative: Patient is a 66 year old assigned female at with no reported medical history presenting to the emergency department today with a cough. Patient's physical exam was unremarkable. Patient's influenza swab was positive. I explained my physical exam findings as well as all test results to the patient. I answered all questions asked by the patient. I stressed the importance of the patient taking her medication as prescribed. I stressed the importance of the patient following up with her primary care provider. I stressed the importance of the patient returning to the emergency department immediately if her symptoms were to worsen or if she were to develop any dizziness, shortness of breath, difficulty breathing, chest pain, blurry vision, loss of vision, nausea, vomiting, abdominal pain, fever, chills, back pain, or any other complaints. Patient verbalized agreement and understanding with this treatment plan and discharge. <HELENA Gan - Last Filed: 06/02/22 18:39> Differential Diagnosis Differential Diagnoses: The differential diagnosis associated with the presentation includes <HELENA Gan - Last Filed: 06/02/22 18:39> influenza <HELENA Gan - Last Filed: 06/02/22 18:39> Lab Data MDM Lab Attestation statement: I reviewed the patient's lab results. <HELENA Gan - Last Filed: 06/02/22 18:39> Labs: Lab Results 06/02/22 Range/Units 14:21 Influenza Type A (PCR) POSITIVE A (Negative) Influenza Type B (PCR) NEGATIVE (Negative) RSV RNA Qual (PCR) NEGATIVE (Negative) SARS-CoV-2 RNA (RT-PCR) NEGATIVE (Negative) <Jazzy Mendoza NP - Last Filed: 06/02/22 12:20> Lab Results 06/02/22 Range/Units 14:21 Influenza Type A (PCR) POSITIVE A (Negative) Influenza Type B (PCR) NEGATIVE (Negative) RSV RNA Qual (PCR) NEGATIVE (Negative) SARS-CoV-2 RNA (RT-PCR) NEGATIVE (Negative) <HELENA Gan - Last Filed: 06/02/22 18:39> Discharge Plan Discharge Clinical Impression: Influenza <Jazzy Mendoza NP - Last Filed: 06/02/22 12:20> Patient Disposition: Home, Self-Care <Jazzy Mendoza NP - Last Filed: 06/02/22 12:20> Instructions: Influenza (ED) <Jazzy Mendoza NP - Last Filed: 06/02/22 12:20> Additional Instructions: Follow up with your primary care provider. Return to the emergency department immediately if your symptoms worsen or if you develop any dizziness, shortness of breath, difficulty breathing, chest pain, blurry vision, loss of vision, nausea, vomiting, abdominal pain, fever, chills, back pain, or any other complaints. <Jazzy Mendoza NP - Last Filed: 06/02/22 12:20> Prescriptions: No Action verapamil 40 mg tablet 40 mg PO DAILY Qty: 20 0RF Rx Instructions: take in the morning, continue taking 120mg at bedtime lisinopril 10 mg tablet 10 mg PO DAILY Qty: 30 0RF hydrocodone-homatropine 5-1.5 mg/5 mL (5 mL) syrup 5 ml PO Q6H PRN (Reason: cough) Qty: 60 0RF benzonatate [Tessalon Perles] 100 mg capsule 100 mg PO BID PRN (Reason: cough) Qty: 14 0RF hydromorphone [Dilaudid] 2 mg tablet 2 mg PO Q6H PRN (Reason: pain) Qty: 5 0RF azithromycin 250 mg tablet See Rx Instructions .ROUTE .COMPLEX Qty: 6 0RF Rx Instructions: For 250 mg dose pack: take 500 mg today (day 1), then 250 mg for 4 days (days 2-5) prednisone 20 mg tablet 40 mg PO DAILY 5 Days Qty: 10 0RF <Jazzy Mendoza NP - Last Filed: 06/02/22 12:20> Referrals: Hubert Alfredo III, MD [Primary Care Provider] - <Jazzy Mendoza NP - Last Filed: 06/02/22 12:20> Interventions: ED Discharge Assessment Last Done: 06/02/22 15:39 <Jazzy Mendoza NP - Last Filed: 06/02/22 12:20> Discharge Date/Time: 06/02/22 15:40 <Jazzy Mendoza NP - Last Filed: 06/02/22 12:20> Print Language: Martiniquais <Jazzy Mendoza NP - Last Filed: 06/02/22 12:20>
[2022-06-02] MEDS: Albuterol Sulfate 90 MCG 8 GM INHALER 2 PUFF INHALE (12:31)
--- OUTSIDE RECORDS SUMMARY | 2022-06-02 12:33 | XMS_ITS | Continuity of Care Document ---
:1955 Author Organization [facility] Address [address] [place] [id number]- Care Team Providers Name Role Phone Hubert Alfredo III, MD Primary Care Physician Encounter [facility] [place] 07/08/20 - 07/08/[address] [id number]- Discharge Disposition: A-D/C Walkout Attending Physician: Not on Staff, Attending MD Admitting Physician: Not on Staff, Admitting MD Referring Physician: Not on Staff, Referring MD Allergies, Adverse Reactions, Alerts Substance Reaction Severity Status codeine Active Medications Abilify 15 mg oral tablet 15 mg, 1, tablet, By Mouth, Daily, Refills 0, Maintenance, 03/27/20 16:58:00 EDT Start Date: 03/27/20 Status: OrderedDuloxetine By Mouth, 0 Refills, Maintenance, 03/27/20 16:58:00 EDT Start Date: 03/27/20 Status: Orderedibuprofen 600 mg oral tablet 600 mg, 1, tablet, By Mouth, 4 times a day, PRN, with food or milk, # 30 tablet, Refills 0, Tot. Refills 0, Maintenance, Pain , Severe, 07/08/20 17:56:00 EST, Route to Pharmacy Electronically, [id number], Partial fill upon patient req... Start Date: 07/08/20 Status: OrderedMetformin By Mouth, 0 Refills, Maintenance, 03/27/20 16:55:00 EDT Start Date: 03/27/20 Status: OrderedOmeprazole By Mouth, Daily, 0 Refills, Maintenance, 03/27/20 16:56:00 EDT Start Date: 03/27/20 Status: OrderedZolpidem Daily at bedtime, 0 Refills, Maintenance, 03/27/20 16:58:00 EDT Start Date: 03/27/20 Status: Ordered Vital Signs Most recent to oldest [Reference Range]: 1 Oxygen Saturation [94-100 %] 97 % (07/08/20 3:52 PM) Pulse Rate [55-90 bpm] 64 bpm (07/08/20 3:52 PM) Blood Pressure [90-138/55-84 mm Hg] 124/73 mm Hg (07/08/20 3:52 PM) Respiratory Rate [16-30 br/min] 17 br/min (07/08/20 3:52 PM) Temperature [96.8-100.4 DegF] 98.6 DegF (07/08/20 3:52 PM) Mode of Delivery (Oxygen) Room air (07/08/20 3:52 PM) Temperature Route Oral (07/08/20 3:52 PM) Social History Social History Type Response Smoking Status Never (less than 100 in life time) entered on: 03/27/20 Sex
[2022-06-02 15:26] LABS: Influenza A PCR POSITIVE (Negative); Influenza B PCR NEGATIVE (Negative); Resp Syncy Virus RNA Qual PCR NEGATIVE (Negative); SARS COV2 PCR INHOUSE NEGATIVE (Negative)
== END 2022-06-02 15:40 | disposition home or self-care (01) ==
PROVIDERS: Physician Assistant Medical; Emergency Provider Student in an Organized Health Care Education/Training Program; PCP Internal Medicine
DX: J11.1 Influenza due to unidentified influenza virus with other respiratory manifestations (principal); Z20.822 Contact with and (suspected) exposure to COVID-19; E11.9 Type 2 diabetes mellitus without complications; I10 Essential (primary) hypertension; Z79.899 Other long term (current) drug therapy
CPT/HCPCS: 0241U; 94640; 99284

== ENCOUNTER 2022-12-06 10:08 | Outpatient (REF) | payer MEDICARE, SELFPAY ==
--- NOTE | ~2022-12-06 | XR_ITS ---
EXAMINATION: XR KNEE, RIGHT XR KNEE STANDING, BILATERAL CLINICAL INFORMATION: Pain. COMPARISON: 07/31/2019 TECHNIQUE: AP standing view of both knees and lateral and patellar sunrise views of the right knee. FINDINGS: AP standing views of both knees demonstrate the patient to be status post right total knee arthroplasty with femoral and tibial components appearing normal and in good position. There is significant degenerative change of the left knee medial joint space compartment with marginal sclerosis and spurring. There is no evidence of acute fracture or dislocation of the right knee. No right knee effusion is appreciated. XR/XR knee RT 2V IMPRESSION: Status post right total knee arthroplasty without acute abnormality appreciated. Significant degenerative change of the left knee medial joint space compartment.
--- NOTE | ~2022-12-06 | XR_ITS ---
EXAMINATION: XR KNEE, RIGHT XR KNEE STANDING, BILATERAL CLINICAL INFORMATION: Pain. COMPARISON: 07/31/2019 TECHNIQUE: AP standing view of both knees and lateral and patellar sunrise views of the right knee. FINDINGS: AP standing views of both knees demonstrate the patient to be status post right total knee arthroplasty with femoral and tibial components appearing normal and in good position. There is significant degenerative change of the left knee medial joint space compartment with marginal sclerosis and spurring. There is no evidence of acute fracture or dislocation of the right knee. No right knee effusion is appreciated. XR/XR knee standing BI IMPRESSION: Status post right total knee arthroplasty without acute abnormality appreciated. Significant degenerative change of the left knee medial joint space compartment.
== END 2022-12-06 10:09 | disposition home or self-care (01) ==
LOC: HO.HOSX 10:08
PROVIDERS: Visit Provider Orthopaedic Surgery
DX: T84.84XA Pain due to internal orthopedic prosthetic devices, implants and grafts, initial encounter (principal); Z96.651 Presence of right artificial knee joint
CPT/HCPCS: 73560; 73565; 99212

== ENCOUNTER 2022-12-06 11:14 | Outpatient (REF) | payer MEDICARE, SELFPAY ==
[2022-12-06 13:30] LABS: C Reactive Protein 0.31 mg/dL (< or = 0.50)
[2022-12-06 14:07] LABS: Erythrocyte Sedimentation Rate 8 MM/HR (0-20)
== END 2022-12-06 11:15 | disposition home or self-care (01) ==
LOC: HO.10HDL 11:14
PROVIDERS: Visit Provider Orthopaedic Surgery
DX: Z96.651 Presence of right artificial knee joint (principal)
CPT/HCPCS: 36415; 85652; 86140

== ENCOUNTER → 2022-12-10 11:39 | Outpatient (BNVA) | payer MEDICARE, SELFPAY | PROVIDERS: PCP Internal Medicine; Visit Provider Orthopaedic Surgery | DX: Z71.2 Person consulting for explanation of examination or test findings (principal) | CPT/HCPCS: Q3014 ==

== ENCOUNTER 2023-01-03 09:13 | Outpatient (AMB) | payer MEDICARE, SELFPAY ==
--- NOTE | 2023-01-03 09:16 | MHC.OFFVIS ---
Intake Vital Signs 01/03/23 09:18 Height 5 ft 2 in Weight 200 lb BMI 36.6 BP 144/76 H Blood Pressure Location Rt brachial Position Sitting Respiration 14 Pulse 79 Pulse Source Pulse Oximeter Pulse Oximetry (%) 95 Oxygen Delivery Method Room Air Intake Visit Reasons: Presence of Right Artificial Knee Joint Chlorobutadiene Scrubber Operator Required: Yes Chlorobutadiene Scrubber Operator Name: prefers granddaughter Allergies codeine Allergy (Verified 01/03/23 09:19) Itching Medication List - Last Reconciled 01/03/23 by Michelle Dutta LPN albuterol sulfate 90 mcg/actuation 2 puffs inhalation Q4H PRN duloxetine 60 mg PO DAILY fluticasone propion-salmeterol 500-50 mcg/dose (Wixela Inhub) 1 ea inhalation BID gabapentin 300 mg PO QPM hydroxyzine HCl 25 mg PO BID PRN lisinopril 10 mg PO DAILY magnesium oxide mg PO DAILY riboflavin (vitamin B2) 400 mg PO DAILY sumatriptan succinate 0 mg PO verapamil 120 mg PO DAILY verapamil ER 120 mg PO BEDTIME zolpidem 5 mg PO BEDTIME PRN HPI Presence of Right Artificial Knee Joint HPI Details 67-year-old female presenting today for an evaluation chronic right knee pain following total knee arthroplasty in 2014. She has been experiencing localized swelling and pain since the surgery. She says using stairs is the most difficult for her. The patient rates her pain at 7/10 at baseline. Walking makes it worse. She can walk on flat ground fine, but has difficulty standing from a seated position, using stairs, and has pain at the end of the day. She is taking two tablets of gabapentin at night that she has found helpful, but nothing else has been helpful. She's done physical therapy, which has not been helpful. PFSH Medical History Anxiety Asthma Depression Diabetes HTN (hypertension) Migraines Surgical History H/O bariatric surgery Hx of cholecystectomy Social History Alcohol intake: never Patient Tobacco Use Status: Never used Tobacco Review of Systems Const All systems reviewed & are unremarkable except as noted in HPI and below Physical Exam Vital Signs: Last Vital Signs Pulse 79 01/03/23 09:18 Resp 14 0717/23 09:18 BP 144/76 H 01/03/23 09:18 Pulse Ox 95 01/03/23 09:18 Oxygen Delivery Method Room Air 01/03/23 09:18 BMI result Body Mass Index 36.6 General: Appears afebrile. Alert and oriented. Mood and affect appropriate. Follows and participates in conversation appropriately. Respiratory effort is unlabored. Able to transition from sit to stand unassisted. Ambulates with bilaterally normal heel strike and toe off. Knees: Tenderness to palpation on the medial aspect of the right knee. Well healed scar overlying the right knee. Range of motion is to about 120 degrees flexion. Results Reviewed Results Reviewed: 12/06/22: XR KNEE, RIGHT / XR KNEE STANDING, BILATERAL FINDINGS: AP standing views of both knees demonstrate the patient to be status post right total knee arthroplasty with femoral and tibial components appearing normal and in good position. There is significant degenerative change of the left knee medial joint space compartment with marginal sclerosis and spurring. There is no evidence of acute fracture or dislocation of the right knee. No right knee effusion is appreciated. IMPRESSION: Status post right total knee arthroplasty without acute abnormality appreciated. Significant degenerative change of the left knee medial joint space compartment. Assessment & Plan Assessment & Plan (1) Chronic knee pain after total replacement of knee joint: Code(s): M25.569 - Pain in unspecified knee; G89.29 - Other chronic pain; Z96.659 - Presence of unspecified artificial knee joint Plan Will schedule her for right temporary saphenous nerve stimulator at the level of the adductor canal under ultrasound guidance. Discussed the risks and benefits of the procedure with the patient in detail. All questions were answered. The patient is on board with the plan. Justification for interventional therapy: ? Patient with average pain > 6/10 ? Patient has exhausted conservative therapy including physical therapy neuropathic medications Scribed for Dr. Reyes by Baltazar Magallanes, biomedical engineering aide, on 01/03/2023. I, Dr. Reyes, have personally reviewed and agree with the information entered by the scribe. Coding Level of Care Code New Pt Level 4 (43179) Diagnoses Chronic knee pain after total replacement of knee joint M25.569; G89.29; Z96.659
[2023-01-03 09:18] VITALS: BP 144/76; PULSE 79; RESP 14; O2SAT 95; BMI 36.6
== END 2023-01-03 09:32 | disposition home or self-care (01) ==
PROVIDERS: PCP Internal Medicine; Visit Provider Internal Medicine
DX: M25.569 Pain in unspecified knee (principal); G89.29 Other chronic pain; Z96.659 Presence of unspecified artificial knee joint
CPT/HCPCS: 99204

== ENCOUNTER → 2023-01-03 09:13 | Outpatient (BNVA) | payer MEDICARE, SELFPAY | PROVIDERS: PCP Internal Medicine; Visit Provider Internal Medicine | DX: G89.29 Other chronic pain (principal); M25.561 Pain in right knee; Z96.651 Presence of right artificial knee joint | CPT/HCPCS: 99202 ==

== ENCOUNTER 2023-02-16 10:13 | Day surgery (SDC) | payer OTHER, SELFPAY ==
[2023-02-16 10:23] VITALS: BMI 38.8
[2023-02-16 11:35] VITALS: BP 119/75; PULSE 76; RESP 14; TEMP 37.1; O2SAT 98
--- NOTE | 2023-02-16 12:57 | P.BOP_ITS ---
Brief Operative Note Date of Service: 02/16/23 Pre-op diagnosis: Chronic right knee pain Post-op diagnosis: same Procedure: Temporary right saphenous nerve stimulator placement Implants: [employer] temporary PNS system Surgeon: Oniel Reyes MD Anesthesia: local Was an Flight Service Specialist used for this Procedure?: No Estimated blood loss (mL): 1 Pathology: none sent Condition: stable Disposition: same day
--- NOTE | 2023-02-16 12:57 | MHC.SHP ---
Pre-Procedural Eval Section A Date of Service: 02/16/23 The patient is an INPATIENT: No Changes since office visit: Yes Patient answered all questions The History & Physical has been completed within 30 days and I have reviewed it.: No Section B Chief Complaint: Presence of artificial knee joint,knee pain, Relevant Family History (Specify if Yes): No Relevant Social History: None Present Medications: see Short Stay Collaborative assessment Medical History: No relevant PMH History of Previous Operations: Relevant previous surgery/procedure and date(s) (Right knee TKR) Allergies: Allergies Allergy/AdvReac Type Severity Reaction Status Date / Time codeine Allergy Itching Verified 02/16/23 10:27 Review of Systems Sugical H&P ROS: Negative: Constitution, Cardiovascular and Respiratory Exam Surgical H&P Exam: Normal: HEENT, Normal: Heart and Normal: Lungs Plan Diagnosis/Plan: Unchanged I have reviewed the history and physical and performed a pertinent physical examination on my patient. No changes have occurred unless specified. Time Spent With Patient Time: Total time managing care of this patient today ____ minutes.
--- NOTE | 2023-02-16 12:58 | P.OP_ITS ---
Operative Note Operative Note Date of Service: 02/16/23 Narrative: Peripheral Nerve Stimulation Temporary Lead Placement, Ultrasound-Guided, Saphenous Nerve, Right ? After the risks, benefits and alternatives were discussed with the patient and informed consentwas obtained, patient was placed in the supine position and padded to foster comfort. Appropriate skin and bony landmarks were identified, and pertinent vascular structures were located. The skin overlying the needle entry site was prepped and draped in sterile fashion. Ultrasound was used to identify the femoral artery, the femoral vein and the saphenous nerve. After identifying and marking the intended target along the course of the saphenous nerve, the skin around the planned entry point and the subcutaneous tissues were injected with local anesthetic. An introducer needle and stimulating probe were assembled, inserted and advanced along the intended course of the saphenous; nerve, taking care to maintain the proper depth of insertion as the introducer was advanced under ultrasound guidance. The introducer needle was delivered to a location in proximity to the nerve taking care not to puncture the femoral artery or the vein. Multiple stimulation parameters were used to deliver stimulation to the saphenous nerve in concert with stimulating at multiple positions around the nerve. Nerve target acquisition was confirmed noting generation of sensory and mild motor effects (paresthesia, muscle tension, etc) in the medial knee, leg and ankle; corresponding to the distribution of the saphenous nerve. Various electrical parameter combinations were tested, and the lead location was adjusted (physic ally relocated under ultrasound guidance) until the patient indicated medial knee paresthesia and tension overlapping the distribution of the patient?s typical region of pain. The stimulating probe was removed from the introducer and a percutaneous lead was guided through the needle and delivered to a location in similar proximity to the nerve. Final location was verified with electrical stimulation and documented. The introducer needle was removed, and the exposed end of the percutaneous lead was attached to an external stimulator unit. Various electrical parameter combinations were again tested until the patient indicated paresthesia and muscle tension overlapping the distribution of the patient?s typical region of pain. After confirming that lead impedance was in the normal range, the external unit was detached, the needle was removed, and the lead was anchored at the skin. The lead was threaded into the connector block and electrical continuity and desired patient response was confirmed. The connector block was attached to the external stimulator unit. The site was covered with a sterile occlusive dressing. A final ultrasound image was taken to document final placement. The patient was observed for stability of vital signs and comfort.
== END 2023-02-16 12:10 | disposition home or self-care (01) ==
PROVIDERS: PCP Internal Medicine; Visit Provider Internal Medicine
PROC: (CPT 64555; principal; 2023-02-16 11:20)
DX: M25.561 Pain in right knee (principal); G89.29 Other chronic pain; M25.461 Effusion, right knee; R26.2 Difficulty in walking, not elsewhere classified; Z96.651 Presence of right artificial knee joint; I10 Essential (primary) hypertension; E11.9 Type 2 diabetes mellitus without complications; J45.909 Unspecified asthma, uncomplicated; G43.909 Migraine, unspecified, not intractable, without status migrainosus; F32.A Depression, unspecified; F41.1 Generalized anxiety disorder; Z79.899 Other long term (current) drug therapy; Z79.51 Long term (current) use of inhaled steroids; Z88.5 Allergy status to narcotic agent; Z90.49 Acquired absence of other specified parts of digestive tract; Z98.84 Bariatric surgery status
CPT/HCPCS: 64555; C1778

== ENCOUNTER → 2023-02-16 10:13 | Outpatient (BNV) | payer OTHER, SELFPAY | PROVIDERS: PCP Internal Medicine; Visit Provider Internal Medicine | DX: M25.561 Pain in right knee (principal) | CPT/HCPCS: 64555 ==

== ENCOUNTER 2023-02-25 11:08 | Outpatient (AMB) | payer MEDICARE, SELFPAY ==
--- NOTE | 2023-02-25 11:12 | MHC.OFFVIS ---
Intake Vital Signs 02/25/23 11:34 Height 5 ft 2 in Weight 201 lb BMI 36.8 BP 112/70 Blood Pressure Location Lt brachial Position Sitting Respiration 14 Pulse 75 Pulse Source Pulse Oximeter Pulse Oximetry (%) 97 Oxygen Delivery Method Room Air Intake Visit Reasons: s/p right SN Sprint Online Content Editor Required: Yes Online Content Editor Name: Jyoti #[id number] Allergies codeine Allergy (Verified 02/25/23 11:12) Itching Medication List - Last Reconciled 02/25/23 by Michelle Dutta LPN albuterol sulfate 90 mcg/actuation 2 puffs inhalation Q4H PRN duloxetine 60 mg PO DAILY fluticasone propion-salmeterol 500-50 mcg/dose (Wixela Inhub) 1 ea inhalation BID gabapentin 300 mg PO QPM hydroxyzine HCl 25 mg PO BID PRN lisinopril 10 mg PO DAILY magnesium oxide mg PO DAILY riboflavin (vitamin B2) 400 mg PO DAILY sumatriptan succinate 0 mg PO verapamil 120 mg PO DAILY verapamil ER 120 mg PO BEDTIME zolpidem 5 mg PO BEDTIME PRN HPI s/p right SN Sprint HPI Details 67-year-old female who presents today to the office for a status post right SN Sprint. A certified machine adjuster helper was present during the visit. The patient reports 80% relief following the procedure. She has itchiness around bandage. She states that her pain started to intensify on left side. She has not changed dressing at home. Past procedure: 02/16/23: Peripheral Nerve Stimulation Temporary Lead Placement, Ultrasound-Guided, Saphenous Nerve, Right: 80% relief. PFSH Medical History Anxiety Asthma Depression Diabetes HTN (hypertension) Migraines Surgical History H/O bariatric surgery Hx of cholecystectomy Social History Alcohol intake: never Patient Tobacco Use Status: Never used Tobacco Review of Systems Const All systems reviewed & are unremarkable except as noted in HPI and below Physical Exam Vital Signs: Last Vital Signs Pulse 75 02/25/23 11:34 Resp 14 02/25/23 11:34 BP 112/70 02/25/23 11:34 Pulse Ox 97 02/25/23 11:34 Oxygen Delivery Method Room Air 02/25/23 11:34 BMI result Body Mass Index 36.8 General: Appears afebrile. Alert and oriented. Mood and affect appropriate. Follows and participates in conversation appropriately. Respiratory effort is unlabored. Able to transition from sit to stand unassisted. Ambulates with bilaterally normal heel strike and toe off. Results Reviewed Results Reviewed: No imaging is available for review. Assessment & Plan Assessment & Plan (1) Chronic knee pain after total replacement of knee joint: Code(s): M25.569 - Pain in unspecified knee; G89.29 - Other chronic pain; Z96.659 - Presence of unspecified artificial knee joint Plan The patient?s dressing was changed today in the office. A dressing change training was also provided to the patient's daughter in the office. ? The patient will follow up in seven weeks for the removal of the Sprint device. Scribed for Dr. Ryees by Baltazar Magallanes, medical malpractice paralegal, on 02/25/2023. I, Dr. Reyes, have personally reviewed and agree with the information entered by the scribe. Coding Level of Care Code Est Pt Level 3 (12140) Diagnoses Chronic knee pain after total replacement of knee joint M25.569; G89.29; Z96.659
[2023-02-25 11:34] VITALS: BP 112/70; PULSE 75; RESP 14; O2SAT 97; BMI 36.8
== END 2023-02-25 11:39 | disposition home or self-care (01) ==
PROVIDERS: PCP Internal Medicine; Visit Provider Internal Medicine
DX: M25.569 Pain in unspecified knee (principal); G89.29 Other chronic pain; Z96.659 Presence of unspecified artificial knee joint
CPT/HCPCS: 99024

== ENCOUNTER → 2023-02-25 11:08 | Outpatient (BNVA) | payer MEDICARE, SELFPAY | PROVIDERS: PCP Internal Medicine; Visit Provider Internal Medicine | DX: G89.29 Other chronic pain (principal); T84.84XA Pain due to internal orthopedic prosthetic devices, implants and grafts, initial encounter; Z96.659 Presence of unspecified artificial knee joint | CPT/HCPCS: 99212 ==

== ENCOUNTER 2023-04-15 14:21 | Outpatient (AMB) | payer MEDICARE, SELFPAY ==
[2023-04-15 14:33] VITALS: BP 127/81; PULSE 81; RESP 18; O2SAT 97; BMI 36.8
--- NOTE | 2023-04-15 14:33 | MHC.OFFVIS ---
Intake Vital Signs 04/15/23 14:33 Height 5 ft 2 in Weight 201 lb 2 oz BMI 36.8 BP 127/81 Blood Pressure Location Lt brachial Position Sitting Respiration 18 Pulse 81 Pulse Source Pulse Oximeter Pulse Oximetry (%) 97 Oxygen Delivery Method Room Air Intake Visit Reasons: Sprint removal/confirmed Allergies codeine Allergy (Verified 04/15/23 14:33) Itching HPI HPI Comments History of Present Illness Details Alexandra is a very pleasant 67 year old female who presents to the office today for follow up right knee pain and right saphenous nerve sprint pns removal. Patient reports improvement in pain, function and mobility. Pain improved 70% overall. She is awaiting weightloss surgery with plan for total knee replacement on the left after weightloss. There is no plan for surgery date at this time. She would like to have Sprint PNS for her left knee pain. Prior: 67-year-old female who presents today to the office for a status post right SN Sprint. A certified hr generalist was present during the visit. The patient reports 80% relief following the procedure. She has itchiness around bandage. She states that her pain started to intensify on left side. She has not changed dressing at home. Past procedure: 02/16/23: Peripheral Nerve Stimulation Temporary Lead Placement, Ultrasound-Guided, Saphenous Nerve, Right: 80% relief. [facility] Medical History Anxiety Asthma Depression Diabetes HTN (hypertension) Migraines Surgical History H/O bariatric surgery Hx of cholecystectomy Social History Alcohol intake: never Patient Tobacco Use Status: Never used Tobacco Review of Systems Const All systems reviewed & are unremarkable except as noted in HPI and below Physical Exam Vital Signs: Last Vital Signs Pulse 81 04/15/23 14:33 Resp 18 04/15/23 14:33 BP 127/81 04/15/23 14:33 Pulse Ox 97 04/15/23 14:33 Oxygen Delivery Method Room Air 04/15/23 14:33 BMI result Body Mass Index 36.8 General: awake, alert, oriented. Answers questions appropriately. Fully engaged in examination. Skin: warm, dry, intact HEENT: Normocephalic. Hearing intact. Cardiac: External chest normal in appearance. Respiratory: No cough, audible wheezing or stridor. Abdomen: without gross distension. MS: No obvious swelling or deformities. Left knee tender to palpation posterior aspect and over lateral joint line. Decreased ROM left knee with reported pain increase Neurological: Oriented to person, place, time and situation. Thought process intact. No gait abnormalities appreciated. Psychiatric: Appropriate mood and affect. Good judgment and insight. Assessment & Plan Assessment & Plan (1) Left knee pain: Code(s): M25.562 - Pain in left knee (2) Chronic knee pain after total replacement of knee joint: Code(s): M25.569 - Pain in unspecified knee; G89.29 - Other chronic pain; Z96.659 - Presence of unspecified artificial knee joint Plan Alexandra is a very pleasant 67 year old female who presented to the office for follow up left knee pain and left SN Sprint removal. Patient reports improvement in pain, function and mobility since placement of the device. She would like to proceed with Sprint PNS for her left knee at this time. Left Saphenous Nerve Sprint dressing removed. Site dry, clean, intact. Area cleansed with chloraprep, lead removed with intact tip. Area cleansed again with chloraprep, bacitracin dressing with tegaderm applied. Patient tolerated removal well. All questions and concerns were addressed during the visit today. Patient will follow up after Sprint PNS placement, sooner if needed. Coding Level of Care Code Est Pt Level 3 (92858) Diagnoses Left knee pain M25.562 Chronic knee pain after total replacement of knee joint M25.569; G89.29; Z96.659
== END 2023-04-15 14:38 | disposition home or self-care (01) ==
PROVIDERS: PCP Internal Medicine; Visit Provider Registered Nurse Emergency
DX: M25.562 Pain in left knee (principal); M25.569 Pain in unspecified knee; G89.29 Other chronic pain; Z96.659 Presence of unspecified artificial knee joint
CPT/HCPCS: 99213

== ENCOUNTER → 2023-04-15 14:21 | Outpatient (BNVA) | payer MEDICARE, SELFPAY | PROVIDERS: PCP Internal Medicine; Visit Provider Registered Nurse Emergency | DX: M25.562 Pain in left knee (principal); G89.29 Other chronic pain; Z45.49 Encounter for adjustment and management of other implanted nervous system device | CPT/HCPCS: 99212 ==